=== PATIENT | male | born 1960 | race Hispanic/Latino ===

== ENCOUNTER 2018-11-11 14:44 | Emergency (ER) | payer BC, OTHER ==
[~2018-11-11] VITALS: Ht 182.9 cm; Wt 114.8 kg
[~2018-11-11 14:44] MED LIST: METFORMIN HCL500 MG PO; PRAVASTATIN SOD10 MG PO; [UNRECOGNIZED DRUG - CODE]; [UNRECOGNIZED DRUG - CODE] PO
--- OUTSIDE RECORDS SUMMARY | 2018-11-11 14:49 | XMS REPORT | CCD ---
Author Author Auto Generated Organization [facility] Address Unknown Phone Unavailable Care Team Providers Care Storeroom Supervisor Name Role Phone Jean Carlos Claros CP Allergies, Adverse Reactions, Alerts Substance Reaction Status codeine Active penicillins Active Problem List Condition Effective Dates Status [D]Nausea and vomiting Active Acid reflux Active Diverticulitis Active Epigastric pain Active HTN - Hypertension Active Type 2 diabetes mellitus Active Medications Medication Instructions Start Date End Date Status Flagyl 500 mg oral 500 mg, 1 tab, PO, Q8H, 30 tab, 02/16/2012 02/26/2012 Ordered tablet Substitution Allowed Cipro 500 mg oral 500 mg, 1 tab, PO, Q12H, 20 tab, 02/16/2012 02/26/2012 Ordered tablet Substitution Allowed, TAB Vicodin 5/500 oral 1-2 tab, PO, Q4-6H, PRN, 15 tab, 02/16/2012 02/21/2012 Ordered tablet Pain, Substitution Allowed, Soft Stop Colace 100 mg oral 100 mg, 1 cap, PO, BID, PRN, 20 02/16/2012 Ordered capsule cap, Constipation, Substitution Allowed, CAP ondansetron 4 mg, Route: IVP, Drug form: INJ, 02/16/2012 02/16/2012 Completed ONCE, Priority: STAT, Start date: 02/16/12 14:25:00, Stop date: 02/16/12 14:25:00 hydromorphone 1 mg, Route: IV, ONCE, Start date: 02/16/2012 02/16/2012 Completed 02/16/12 14:25:00, Stop date: 02/16/12 14:25:00 Saline Flush 0.9% 5 ml, Route: IVP, Drug Form: INJ, 02/16/2012 02/16/2012 Discontinued PRN, PRN Line Flush, Start date: 02/16/12 14:46:00, Duration: 24 hr, Stop date: 02/17/12 14:45:00 Sodium Chloride 0.9% 500 mL, Rate: 1,000 ml/hr, Infuse 02/16/2012 02/16/2012 Completed (Bolus) IV 500 mL over: 0.5 hr, Route: IV, kg, Total Volume: 500, Bolus dose, Priority: STAT, Start date: 02/16/12 14:46:00, Duration: 1 doses or times, Stop date: 02/16/12 15:15:00 ondansetron 4 mg, 2 mL, Route: IVP, Drug form: 02/16/2012 02/16/2012 Ordered INJ, ONCE, Priority: STAT, Start date: 02/16/12 14:46:00, Stop date: 02/16/12 14:46:00 hydromorphone 1 mg, 1 mL, Route: IVP, Drug form: 02/16/2012 02/16/2012 Ordered SOLN, ONCE, Priority: STAT, Start date: 02/16/12 14:46:00, Stop date: 02/16/12 14:46:00 Vital Signs Most recent to oldest [Reference Range]: 1 Height 182.88 cm (02/16/2012 14:02:00) Weight 118.182 kg (02/16/2012 14:02:00) Results URINALYSIS Most recent to oldest [Reference Range]: 1 UA Turbidity [Clear] Clear (02/16/2012 16:29:00) UA Color [Yellow] Yellow *NA* (02/16/2012 16:29:00) UA pH [5.0-8.0] 6.0 (02/16/2012 16:29:00) UA Spec Grav [<=1.030] 1.017 (02/16/2012 16:29:00) UA Glucose [Negative mg/dL] 150 mg/dL *ABN* (02/16/2012 16:29:00) UA Blood [Negative] Negative (02/16/2012 16:29:00) UA Ketones [Negative mg/dL] 80 mg/dL *ABN* (02/16/2012 16:29:00) UA Protein [Negative mg/dL] Negative mg/dL (02/16/2012 16:29:00) UA Urobilinogen [0.1-1.0 mg/dL] <=1.0 mg/dL *NA* (02/16/2012 16:29:00) UA Bili [Negative] Negative *NA* (02/16/2012 16:29:00) UA Leuk Est [Negative] Negative (02/16/2012 16:29:00) UA Nitrite [Negative] Negative (02/16/2012 16:29:00) UA WBC [0-5 /HPF] <1 /HPF (02/16/2012 16:29:00) UA RBC [0-2 /HPF] 1 /HPF (02/16/2012 16:29:00) UA Sq Epi None Seen *NA* (02/16/2012 16:29:00) UA Mucus [None Seen /LPF] Few /LPF *NA* (02/16/2012 16:29:00) CHEMISTRY Most recent to oldest [Reference Range]: 1 Sodium Lvl [135-145 mEq/L] 138 mEq/L (02/16/2012 14:15:00) Potassium Lvl [3.5-5.1 mEq/L] 3.7 mEq/L (02/16/2012 14:15:00) Chloride Lvl [95-109 mEq/L] 103 mEq/L (02/16/2012 14:15:00) CO2 [24-32 mEq/L] 22 mEq/L *LOW* (02/16/2012 14:15:00) AGAP [10.0-20.0 mEq/L] 16.7 mEq/L (02/16/2012 14:15:00) Creatinine Lvl [0.5-1.4 mg/dL] 1.0 mg/dL (02/16/2012 14:15:00) BUN [7-22 mg/dL] 15 mg/dL (02/16/2012 14:15:00) B/C Ratio [6-25] 15 (02/16/2012 14:15:00) Glucose Lvl [70-99 mg/dL] 176 mg/dL 1 *HI* (02/16/2012 14:15:00) Total Protein [6.4-8.4 g/dL] 8.4 g/dL (02/16/2012 14:15:00) Albumin Lvl [3.5-5.0 g/dL] 4.1 g/dL (02/16/2012 14:15:00) Globulin [2.0-4.0 g/dL] 4.3 g/dL *HI* (02/16/2012:15:00) A/G Ratio [0.7-1.6] 1.0 (02/16/2012 14:15:00) Calcium Lvl [8.5-10.5 mg/dL] 9.4 mg/dL (02/16/2012:15:00) ALT [0-65 U/L] 32 U/L (02/16/2012:15:00) AST [0-37 U/L] 26 U/L (02/16/2012 14:15:00) Alk Phos [39-136 U/L] 83 U/L (02/16/2012 14:15:00) Bili Total [0.2-1.3 mg/dL] 1.5 mg/dL *HI* (02/16/2012 14:15:00) Lipase Lvl [73-393 U/L] 389 U/L (02/16/2012 14:15:00) 1Interpretive Data: Adult reference range values reflect the clinical guidelines of the [employer]. HEMATOLOGY Most recent to oldest [Reference Range]: 1 WBC [3.7-10.4 K/CMM] 10.3 K/CMM (02/16/2012 14:15:00) RBC [4.70-6.10 M/CMM] 4.99 M/CMM (02/16/2012 14:15:00) Hgb [14.0-18.0 g/dL] 16.7 g/dL (02/16/2012:15:00) Hct [42.0-54.0 %] 47.8 % (02/16/2012 14:15:00) MCV [80.0-94.0 fL] 95.8 fL *HI* (02/16/2012 14:15:00) MCH [27.0-31.0 pg] 33.6 pg *HI* (02/16/2012 14:15:00) MCHC [32.0-36.0 g/dL] 35.0 g/dL (02/16/2012 14:15:00) RDW [11.5-14.5 %] 12.5 % (02/16/2012 14:15:00) Platelet [133-450 K/CMM] 260 K/CMM (02/16/2012 14:15:00) MPV [7.4-10.4 fL] 7.8 fL (02/16/2012 14:15:00) Segs [45.0-75.0 %] 63.4 % (02/16/2012 14:15:00) Lymphocytes [20.0-40.0 %] 29.2 % (02/16/2012 14:15:00) Monocytes [2.0-12.0 %] 6.6 % (02/16/2012 14:15:00) Eosinophils [0.0-4.0 %] 0.5 % (02/16/2012 14:15:00) Basophils [0.0-1.0 %] 0.3 % (02/16/2012 14:15:00) Segs-Bands # [1.5-8.1 K/CMM] 6.5 K/CMM (02/16/2012 14:15:00) Lymphocytes # [1.0-5.5 K/CMM] 3.0 K/CMM (02/16/2012 14:15:00) Monocytes # [0.0-0.8 K/CMM] 0.7 K/CMM (02/16/2012 14:15:00) Eosinophils # [0.0-0.5 K/CMM] 0.1 K/CMM (02/16/2012 14:15:00) Basophils # [0.0-0.2 K/CMM] 0.0 K/CMM (02/16/2012 14:15:00)
--- OUTSIDE RECORDS SUMMARY | 2018-11-11 14:49 | XMS REPORT | Summary of Care ---
Author Author [facility] Organization [facility] Address Unknown Phone Unavailable Encounter CARMELA Rushing(CHRIS) [id number] Date(s): 01/21/17 - 01/21/17 [facility] [id number] [place] [address]- Discharge Diagnosis: Acute pain of left shoulder due to trauma Discharge Disposition: Home or Self Care Attending Physician: Jakob Heller MD Vital Signs Most recent to 1 2 oldest [Reference Range]: Height 182.88 cm (01/21/17 9:56 AM) Temperature Oral 97.9 DegF 98.4 DegF [96.4-99.1 DegF] (01/21/17 11:40 AM) (01/21/17 9:56 AM) Blood Pressure 122/74 mmHg 142/79 mmHg [90-140/60-90 mmHg] (01/21/17 11:40 AM) *HI* (01/21/17 9:56 AM) Respiratory Rate 16 BRMIN 17 BRMIN [14-20 BRMIN] (01/21/17 11:40 AM) (01/21/17 9:56 AM) Peripheral Pulse 61 bpm 72 bpm Rate [60-100 bpm] (01/21/17 11:40 AM) (01/21/17 9:56 AM) Weight 109.091 kg (01/21/17 9:56 AM) Body Mass Index 32.62 m2 (01/21/17 9:56 AM) Problem List Condition Effective Dates Status Health Status Informant [D]Nausea and Active vomiting(Confirmed) Abdominal Resolved hernia(Confirmed) Acid Active reflux(Confirmed) Biliary dyskinesia1, 12/02/11 Active 2 Diabetes(Confirmed) Resolved Diverticulitis(Confi Resolved rmed) Diverticulitis(Confi Active rmed) Epigastric Active pain(Confirmed) HTN - Active Hypertension(Confirm ed) Type 2 diabetes Active mellitus(Confirmed) 1Data migrated from [employer] on 12/31/14. 2Data migrated from [employer] on 12/31/14. Allergies, Adverse Reactions, Alerts Substance Reaction Severity Status [email or web address] Active penicillins2 Active 1Data migrated from [employer] on 10/02/15. Originally documented as CODEINE. nausea, vomiting 2Data migrated from [employer] on 02/28/15. Originally documented as PENICILLIN. hives, rash,nausea Medications Flexeril 10 mg, Route: PO, ONCE, Dosing Weight 109.091, kg, Priority: STAT, Start date: 0 01/21/17 10:16:00 CDT, Stop date: 01/21/17 10:16:00 CDT Start Date: 01/21/17 Stop Date: 01/21/17 Status: Completed Flexeril 10 mg oral tablet 10 mg, PO, TID, PRN Muscle Spasm, X 10 day, # 30 tab, 0 Refill(s) Start Date: 01/21/17 Stop Date: 01/31/17 Status: Ordered Welches 5/325 oral tablet 1 tab, Route: PO, Drug Form: TAB, Dosing Weight 109.091, kg, ONCE, STAT, Start d ate: 01/21/17 10:15:00 CDT, Stop date: 01/21/17 10:15:00 CDT Start Date: 01/21/17 Stop Date: 01/21/17 Status: Completed tramadol 50 mg oral tablet 50 mg=1 tab, PO, BID, X 15 day, # 30 tab, 0 Refill(s) Start Date: 01/21/17 Stop Date: 02/05/17 Status: Ordered Results No data available for this section Immunizations No data available for this section Procedures Procedure Date Related Diagnosis Body Site Cholecystectomy Knee joint operation Social History Social History Type Response Smoking Status Never smoker; Exposure to Tobacco Smoke None; Cigarette Smoking Last 365 Days No; Reg Smoking Cessation Counseling No Assessment and Plan No data available for this section
--- OUTSIDE RECORDS SUMMARY | 2018-11-11 14:49 | XMS REPORT | Continuity of Care Document ---
Author Author Danilo trae [facility] Interface Address Unknown Phone Unavailable Problems Problem Status Onset Date Classification Date Reported Comments Source Discharge Diagnosis: Nausea and vomiting 04/10/2017 04/13/2017 [facility] Discharge Diagnosis: Acute epigastric pain 04/10/2017 04/13/2017 [facility] Discharge Diagnosis: GERD 04/10/2017 04/13/2017 [facility] N/V Active 04/10/2017 [facility] Discharge Diagnosis: Acute pain of left shoulder due to trauma 01/21/2017 01/24/2017 [facility] SHOULDER PAIN Active 01/21/2017 [facility] Discharge Diagnosis: Abdominal pain, epigastric 10/09/2016 10/13/2016 [facility] VOMITING Active 10/09/2016 [facility] Discharge Diagnosis: Diverticulitis 03/08/2016 03/11/2016 [facility] ABD PAIN Active 03/08/2016 [facility] Discharge Diagnosis: Lower abdominal pain, unspecified 03/06/2016 03/10/2016 [facility] Discharge Diagnosis: Nausea with vomiting, unspecified 03/06/2016 03/10/2016 [facility] INTRACTABLE ABD PAIN, R/O DIVERTICULITIS Active 03/06/2016 [facility] ABDOMINAL PAIN Active 03/17/2012 [facility] Biliary dyskinesia<sup>1, 2</sup> Active 12/02/2011 Problem 04/13/2017 [facility] migrated from [facility] on 12/31/14. [facility] [D]Nausea and vomiting Active Problem 04/13/2017 [facility] Abdominal hernia Resolved Problem 04/13/2017 [facility] Acid reflux Active Problem 04/13/2017 [facility] Diabetes Resolved Problem 04/13/2017 [facility] Diverticulitis Resolved Problem 04/13/2017 [facility] Epigastric pain Active Problem 04/13/2017 [facility] HTN - Hypertension Active Problem 04/13/2017 [facility] Type 2 diabetes mellitus Active Problem 04/13/2017 [facility] [D]Nausea and vomiting Active Problem 03/19/2012 [facility] Acid reflux Active Problem 03/19/2012 [facility] Diverticulitis Active Problem 03/19/2012 [facility] Epigastric pain Active Problem 03/19/2012 [facility] HTN - Hypertension Active Problem 03/19/2012 [facility] Type 2 diabetes mellitus Active Problem 03/19/2012 [facility] HTN - Hypertension Active Problem 12/28/2011 [facility] Medications Medication Details Route Status Patient Instructions Ordering Provider Order Date Source Promethazine Hydrochloride 12.5 MG Rectal Suppository [Phenergan] 12.5 mg=1 supp, MS, Q4H, PRN Nausea & Vomiting, # 12 supp, 0 Refill(s) Active 04/11/2017 [facility] Magic Mouth Wash (Maalox/Benadryl/Carafate) 1:1:1 5 ml, S&SPIT, QID, PRN Pain Score 6-10, # 180 ml, 0 Refill(s) Active 04/11/2017 [facility] Fentanyl 50 microgram, 1 mL, Route: IVP, Drug form: INJ, ONCE, Dosing Weight 109.091, kg, Priority: STAT, Start date: 04/10/17 21:22:00 CDT, Stop date: 04/10/17 21:22:00 CDTNotes: (Same as: Sublimaze) Preservative free. Inactive 04/11/2017 [facility] Zofran 4 mg, 2 mL, Route: IVP, Drug form: INJ, ONCE, Dosing Weight 109.091, kg, Priority: STAT, Start date: 04/10/17 21:22:00 CDT, Stop date: 04/10/17 21:22:00 CDTNotes: (Same as: Zofran) MEDICATION WASTE Product Size: 4 mg Product Wasted: ___ mg Inactive 04/11/2017 [facility] GI cocktail 30 mL, Route: PO, Drug Form: SUSP, Dosing Weight 109.091, kg, ONCE, STAT, Start date: 04/10/17 21:22:00 CDT, Stop date: 04/10/17 21:22:00 CDTNotes: G.I. Cocktail=antacid with simethicone 22.5 mL - lidocaine viscous 7.5 mL Inactive 04/11/2017 [facility] Saline Flush 0.9% 10 mL, Route: IVP, Drug Form: INJ, Dosing Weight 109.091, kg, PRN, PRN Line Flush, Start date: 04/10/17 15:29:00 CDT, Duration: 30 day, Stop date: 05/10/17 15:28:00 CDTNotes: (Same as: BD Posiflush) No Longer Active 04/10/2017 [facility] Cyclobenzaprine hydrochloride 10 MG Oral Tablet [Flexeril] 10 mg, PO, TID, PRN Muscle Spasm, X 10 day, # 30 tab, 0 Refill(s) Active 01/21/2017 [facility] tramadol hydrochloride 50 MG Oral Tablet 50 mg=1 tab, PO, BID, X 15 day, # 30 tab, 0 Refill(s) Active 01/21/2017 [facility] Flexeril 10 mg, Route: PO, ONCE, Dosing Weight 109.091, kg, Priority: STAT, Start date: 01/21/17 10:16:00 CDT, Stop date: 01/21/17 10:16:00 CDT Inactive 01/21/2017 [facility] Acetaminophen 325 MG / Hydrocodone Bitartrate 5 MG Oral Tablet [Wilmer 5/325] 1 tab, Route: PO, Drug Form: TAB, Dosing Weight 109.091, kg, ONCE, STAT, Start date: 01/21/17 10:15:00 CDT, Stop date: 01/21/17 10:15:00 CDT Inactive 01/21/2017 [facility] Ondansetron 4 MG Disintegrating Tablet [Zofran] 4 mg=1 tab, PO, TID, Dissolve tab under tongue, X 1 day, # 3 tab, 0 Refill(s) No Longer Active 10/10/2016 [facility] tramadol hydrochloride 50 MG Oral Tablet 50 mg=1 tab, PO, Q8H, PRN Pain, X 20 day, # 60 tab, 0 Refill(s) Active 10/10/2016 [facility] Ranitidine 300 MG Oral Tablet [Zantac] 300 mg=1 tab, PO, Daily, # 30 tab, 0 Refill(s) Active 10/10/2016 [facility] GI cocktail 30 mL, Route: PO, Dosing Weight 118.182, kg, ONCE, STAT, Start date: 10/09/16 22:01:00 LICENSED CLINICAL PSYCHOLOGIST, Stop date: 10/09/16 22:01:00 LICENSED CLINICAL PSYCHOLOGIST Inactive 10/10/2016 [facility] Morphine 4 mg, Route: IVP, ONCE, Dosing Weight 118.182, kg, Priority: STAT, Start date: 10/09/16 18:54:00 LICENSED CLINICAL PSYCHOLOGIST, Stop date: 10/09/16 18:54:00 LICENSED CLINICAL PSYCHOLOGIST Inactive 10/10/2016 [facility] Saline Flush 0.9% 10 mL, Route: IVP, Drug Form: INJ, Dosing Weight 118.182, kg, PRN, PRN Line Flush, Start date: 10/09/16 17:42:00 LICENSED CLINICAL PSYCHOLOGIST, Duration: 30 day, Stop date: 11/08/16 18:41:00 CDTNotes: (Same as: BD Posiflush) No Longer Active 10/09/2016 [facility] Sodium Chloride 0.154 MEQ/ML Injectable Solution 1,000 mL, 2,000 ml/hr, Infuse Over: 30 minutes, Route: IV, 1,000, Drug form: INJ, ONCE, Priority: STAT, Dosing Weight 118.182 kg, Start date: 10/09/16 17:42:00 LICENSED CLINICAL PSYCHOLOGIST, Duration: 1 doses or times, Stop date: 10/09/16 17:42:00 LICENSED CLINICAL PSYCHOLOGIST Inactive 10/09/2016 [facility] Ondansetron 4 mg, Route: IVP, ONCE, Dosing Weight 118.182, kg, Priority: STAT, Start date: 10/09/16 17:42:00 LICENSED CLINICAL PSYCHOLOGIST, Stop date: 10/09/16 17:42:00 LICENSED CLINICAL PSYCHOLOGIST Inactive 10/09/2016 [facility] Ondansetron 0.8 MG/ML Oral Solution [Zofran] 4 mg=5 mL, PO, TID, PRN Nausea, X 3 day, # 45 mL, 0 Refill(s) Active 03/08/2016 [facility] Hydromorphone 0.5 mg, Route: IVP, ONCE, Dosing Weight 118.182, kg, Priority: STAT, Start date: 03/08/16 12:15:00 CDT, Stop date: 03/08/16 12:15:00 CDT Inactive 03/08/2016 [facility] Metoclopramide 10 mg, Route: IVP, Drug form: INJ, ONCE, Dosing Weight 118.182, kg, Priority: STAT, Start date: 03/08/16 12:15:00 CDT, Stop date: 03/08/16 12:15:00 CDT Inactive 03/08/2016 [facility] Sodium Chloride 0.154 MEQ/ML Injectable Solution 1,000 mL, 2,000 ml/hr, Infuse Over: 30 minutes, Route: IV, ONCE, Priority: STAT, Dosing Weight 118.182 kg, Start date: 03/08/16 11:59:00 CDT, Duration: 1 doses or times, Stop date: 03/08/16 11:59:00 CDT Inactive 03/08/2016 [facility] Ondansetron 4 mg, Route: IVP, Drug form: INJ, ONCE, Dosing Weight 118.182, kg, Priority: STAT, Start date: 03/08/16 11:59:00 CDT, Stop date: 03/08/16 11:59:00 CDT Inactive 03/08/2016 [facility] Morphine 4 mg, Route: IVP, ONCE, Dosing Weight 118.182, kg, Priority: STAT, Start date: 03/08/16 11:59:00 CDT, Stop date: 03/08/16 11:59:00 CDT Inactive 03/08/2016 [facility] Metronidazole 500 MG Oral Tablet [Flagyl] 500 mg=1 tab, PO, Q8H, X 7 day, # 21 tab, 0 Refill(s) Active 03/07/2016 [facility] Ciprofloxacin 500 MG Oral Tablet [Cipro] 500 mg=1 tab, PO, Q12H, X 7 day, # 14 tab, 0 Refill(s) Active 03/07/2016 [facility] Flagyl 500 mg, 100 mL, Route: IVPB, Drug form: INJ, [id number], Dosing Weight 118.182, kg, Start date: 03/07/16 11:00:00 CDT, Duration: 30 day, Stop date: 04/06/16 3:00:00 CDTNotes: (Same as: Flagyl) Avoid alcohol. Inactive 03/07/2016 [facility] Ciprofloxacin 400 mg, 200 mL, Route: IVPB, Drug form: INJ, [id number], Dosing Weight 118.182, kg, Start date: 03/07/16 11:00:00 CDT, Duration: 30 day, Stop date: 04/05/16 23:00:00 CDTNotes: Do not refrigerate Inactive 03/07/2016 [facility] Sodium Chloride 0.154 MEQ/ML Injectable Solution 1,000 mL, Rate: 125 ml/hr, Infuse over: 8 hr, Route: IV, Dosing Weight 118.182 kg, Total Volume: 1,000, Start date: 03/06/16 22:37:00 CDT, Duration: 30 day, Stop date: 04/05/16 22:36:00 CDT No Longer Active 03/07/2016 [facility] Glucose 50 MG/ML / Sodium Chloride 0.0769 MEQ/ML Injectable Solution 1,000 mL, Rate: 125 ml/hr, Infuse over: 8 hr, Route: IV, Dosing Weight 118.182 kg, Total Volume: 1,000, Start date: 03/06/16 20:24:00 CDT, Duration: 30 day, Stop date: 04/05/16 20:23:00 CDT Inactive 03/07/2016 [facility] Saline Flush 0.9% 10 ml, Route: IVP, Drug Form: INJ, Dosing Weight 118.182, kg, PRN, PRN Line Flush, Start date: 03/06/16 20:24:00 CDT, Duration: 30 day, Stop date: 04/05/16 20:23:00 CDTNotes: (Same as: BD Posiflush) No Longer Active 03/07/2016 [facility] Acetaminophen 650 mg, 2 tab, Route: PO, Drug form: TAB, Q4H, Dosing Weight 118.182, kg, PRN Pain 1-3/Temp > 100.4 F, Start date: 03/06/16 20:24:00 CDT, Duration: 30 day, Stop date: 04/05/16 20:23:00 CDTNotes: Do not exceed 4 gm/day. (Same as: Tylenol) No Longer Active 03/07/2016 [facility] Morphine 2 mg, 1 mL, Route: IVP, Drug form: INJ, Q4H, Dosing Weight 118.182, kg, PRN Pain Score 7-10, Start date: 03/06/16 20:24:00 CDT, Duration: 30 day, Stop date: 04/05/16 20:23:00 CDTNotes: (Same as:MORPhine Sulfate) No Longer Active 03/07/2016 [facility] Phenergan 12.5 mg, Route: IVPB, ONCE, Dosing Weight 118.182, kg, Priority: STAT, Start date: 03/06/16 19:49:00 CDT, Stop date: 03/06/16 19:49:00 CDT Inactive 03/07/2016 [facility] 24 HR Metformin hydrochloride 500 MG Extended Release Tablet 500 mg=1 tab, PO, BID, 0 Refill(s) Active 03/07/2016 [facility] Flagyl 500 mg, 100 mL, Route: IVPB, Drug form: INJ, ONCE, Dosing Weight 118.182, kg, Priority: STAT, Start date: 03/06/16 19:26:00 CDT, Stop date: 03/06/16 19:26:00 CDTNotes: (Same as: Flagyl) Avoid alcohol. Inactive 03/07/2016 [facility] Cipro 400 mg, 200 mL, Route: IVPB, Drug form: INJ, ONCE, Dosing Weight 118.182, kg, Priority: STAT, Start date: 03/06/16 19:26:00 CDT, Stop date: 03/06/16 19:26:00 CDTNotes: Do not refrigerate Inactive 03/07/2016 [facility] Ondansetron 4 MG Disintegrating Tablet [Zofran] 4 mg=1 tab, PO, BID, PRN Nausea and Vomiting, Dissolve tab under tongue, X 4 day, # 8 tab, 0 Refill(s) Active 03/07/2016 [facility] Metronidazole 500 MG Oral Tablet [Flagyl] 500 mg=1 tab, PO, BID, X 7 day, # 14 tab, 0 Refill(s) Active 03/07/2016 [facility] Ciprofloxacin 500 MG Oral Tablet [Cipro] 500 mg=1 tab, PO, Q12H, X 7 day, # 14 tab, 0 Refill(s) Active 03/07/2016 [facility] Zofran 4 mg, 2 mL, Route: IVP, Drug form: INJ, ONCE, Dosing Weight 118.182, kg, Priority: STAT, Start date: 03/06/16 19:13:00 CDT, Stop date: 03/06/16 19:13:00 CDTNotes: (Same as: Zofran) MEDICATION WASTE Product Size: 4 mg Product Wasted: _0__ mg Inactive 03/07/2016 [facility] Dilaudid 1 mg, 1 mL, Route: IV, Drug form: INJ, ONCE, Dosing Weight 118.182, kg, Start date: 03/06/16 19:13:00 CDT, Stop date: 03/06/16 19:13:00 CDT Inactive 03/07/2016 [facility] Sodium Chloride 0.154 MEQ/ML Injectable Solution 1,000 mL, 1,000 ml/hr, Infuse Over: 1 hr, Route: IV, 1,000, Drug form: INJ, ONCE, Priority: STAT, Dosing Weight 118.182 kg, Start date: 03/06/16 16:13:00 CDT, Duration: 1 doses or times, Stop date: 03/06/16 16:13:00 CDT Inactive 03/06/2016 [facility] Dilaudid 1 mg, 1 mL, Route: IV, Drug form: INJ, ONCE, Dosing Weight 118.182, kg, Start date: 03/06/16 16:13:00 CDT, Stop date: 03/06/16 16:13:00 CDT Inactive 03/06/2016 [facility] Protonix 40 mg, Route: IVP, Drug form: INJ, ONCE, Dosing Weight 118.182, kg, Priority: STAT, Start date: 03/06/16 16:13:00 CDT, Stop date: 03/06/16 16:13:00 CDTNotes: For IV push reconstitute with 10 ml 0.9% sod ium chloride and push over 2 minutes. (Same as: Protonix) Inactive 03/06/2016 [facility] Sodium Chloride 0.154 MEQ/ML Injectable Solution 1,000 mL, 1,000 ml/hr, Infuse Over: 1 hr, Route: IV, ONCE, Priority: STAT, Dosing Weight 118.182 kg, Start date: 03/06/16 15:53:00 CDT, Duration: 1 doses or times, Stop date: 03/06/16 15:53:00 CDT Inactive 03/06/2016 [facility] Ondansetron 4 mg, 2 mL, Route: IVP, Drug form: INJ, ONCE, Dosing Weight 118.182, kg, Priority: STAT, Start date: 03/06/16 15:53:00 CDT, Stop date: 03/06/16 15:53:00 CDTNotes: (Same as: Ashely) MEDICATION WASTE Product Size: 4 mg Product Wasted: ___ mg Inactive 03/06/2016 [facility] Morphine 4 mg, 2 mL, Route: IV, Drug form: INJ, ONCE, Dosing Weight 118.182, kg, Start date: 03/06/16 15:52:00 CDT, Stop date: 03/06/16 15:52:00 CDTNotes: (Same as:MORPhine Sulfate) Inactive 03/06/2016 [facility] Saline Flush 0.9% 10 mL, Route: IVP, Drug Form: INJ, Dosing Weight 118.182, kg, PRN, PRN Line Flush, Start date: 03/06/16 15:52:00 CDT, Duration: 30 day, Stop date: 04/05/16 15:51:00 CDTNotes: (Same as: BD Posiflush) No Longer Active 03/06/2016 [facility] Zofran 4 mg oral tablet 4 mg, 1 tab, PO, BID, 10 tab, Substitution Allowed PO Active Ronald 03/18/2012 [facility] Sodium Chloride 0.9% (Bolus) IV 1,000 mL 1,000 mL, Rate: 1,000 ml/hr, Infuse over: 1 hr, Route: IV, Dosing Weight 113 kg, Total Volume: 1,000, Bolus Dose, Priority: STAT, Start date: 03/17/12 20:35:00, Duration: 1 doses or times, Stop date: 03/17/12 21:34:00 IV No Longer Active Ronald 03/18/2012 [facility] Sodium Chloride 0.9% (Bolus) IV 1000 mL 1,000 mL, Rate: 1,000 ml/hr, Infuse over: 1 hr, Route: IV, kg, Total Volume: 1,000, Bolus Dose, Priority: STAT, Start date: 03/17/12 17:57:00, Duration: 1 doses or times, Stop date: 03/17/12 18:56:00 IV No Longer Active Isa 03/17/2012 [facility] Zofran 4 mg, Route: IVP, Drug form: INJ, ONCE, Dosing Weight 113.636, kg, Priority: STAT, Start date: 03/17/12 17:56:00, Stop date: 03/17/12 17:56:00 IVP No Longer Active Ronald 03/17/2012 [facility] Dilaudid 1 mg, Route: IV, ONCE, Dosing Weight 113.636, kg, Start date: 03/17/12 17:56:00, Stop date: 03/17/12 17:56:00 IV No Longer Active Ronald 03/17/2012 [facility] Saline Flush 0.9% 5 ml, Route: IVP, Drug Form: INJ, kg, PRN, PRN Line Flush, Start date: 03/17/12 17:24:00, Duration: 24 hr, Stop date: 03/18/12 17:23:00 IVP No Longer Active Harsh 03/17/2012 [facility] Flagyl 500 mg oral tablet 500 mg, 1 tab, PO, Q8H, 30 tab, Substitution Allowed PO Active Nhan 02/16/2012 [facility] Cipro 500 mg oral tablet 500 mg, 1 tab, PO, Q12H, 20 tab, Substitution Allowed, TAB PO Active Nhan 02/16/2012 [facility] Vicodin 5/500 oral tablet 1-2 tab, PO, Q4-6H, PRN, 15 tab, Pain, Substitution Allowed, Soft Stop PO Active Nhan 02/16/2012 [facility] Colace 100 mg oral capsule 100 mg, 1 cap, PO, BID, PRN, 20 cap, Constipation, Substitution Allowed, CAP PO Active Nhan 02/16/2012 [facility] Saline Flush 0.9% 5 ml, Route: IVP, Drug Form: INJ, PRN, PRN Line Flush, Start date: 02/16/12 14:46:00, Duration: 24 hr, Stop date: 02/17/12 14:45:00 IVP No Longer Active Nhan 02/16/2012 [facility] Sodium Chloride 0.9% (Bolus) IV 500 mL 500 mL, Rate: 1,000 ml/hr, Infuse over: 0.5 hr, Route: IV, kg, Total Volume: 500, Bolus dose, Priority: STAT, Start date: 02/16/12 14:46:00, Duration: 1 doses or times, Stop date: 02/16/12 15:15:00 IV No Longer Active Nhan 02/16/2012 [facility] ondansetron 4 mg, 2 mL, Route: IVP, Drug form: INJ, ONCE, Priority: STAT, Start date: 02/16/12 14:46:00, Stop date: 02/16/12 14:46:00 IVP Active Nhan 02/16/2012 [facility] hydromorphone 1 mg, 1 mL, Route: IVP, Drug form: SOLN, ONCE, Priority: STAT, Start date: 02/16/12 14:46:00, Stop date: 02/16/12 14:46:00 IVP Active Nhan 02/16/2012 [facility] ondansetron 4 mg, Route: IVP, Drug form: INJ, ONCE, Priority: STAT, Start date: 02/16/12 14:25:00, Stop date: 02/16/12 14:25:00 IVP No Longer Active Nhan 02/16/2012 [facility] hydromorphone 1 mg, Route: IV, ONCE, Start date: 02/16/12 14:25:00, Stop date: 02/16/12 14:25:00 IV No Longer Active Nhan 02/16/2012 [facility] Protonix 40 mg, 1 tab, Route: PO, Drug form: ECTAB, BID- Before Meals, Start date: 12/26/11 16:30:00, Duration: 30 day, Stop date: 01/25/12 7:30:00 PO No Longer Active Mougouris 12/26/2011 [facility] Protonix 40 mg oral enteric coated tablet 40 mg, 1 tab, PO, BID, 60 tab, Substitution Allowed, ECTAB PO Active Mougouris 12/26/2011 [facility] Protonix 40 mg oral enteric coated tablet 40 mg, 1 tab, PO, BID, 60 tab, Substitution Allowed PO Active Mougouris 12/26/2011 [facility] Saline Flush 0.9% 5 ml, Route: IVP, Drug Form: INJ, PRN, PRN Line Flush, Start date: 12/25/11 18:57:00, Duration: 30 day, Stop date: 01/24/12 18:56:00 IVP No Longer Active Mougouris 12/25/2011 [facility] Dextrose 5% with 0.45% NaCl IV 1,000 mL 1,000 mL, Rate: 125 ml/hr, Infuse over: 8 hr, Route: IV, Dosing Weight 118.182 kg, Total Volume: 1,000, Start date: 12/25/11 18:57:00, Duration: 30 day, Stop date: 01/24/12 18:56:00 IV No Longer Active Mougclementeis 12/25/2011 [facility] ondansetron 4 mg, 2 mL, Route: IVP, Drug form: INJ, Q6H, PRN Nausea & Vomiting, Start date: 12/25/11 18:57:00, Duration: 30 day, Stop date: 01/24/12 18:56:00 IVP No Longer Active Humbertoheidy 12/25/2011 [facility] morphine Sulfate 4 mg, 2 mL, Route: IVP, Drug form: INJ, Q4H, PRN Pain Score 7-10, Start date: 12/25/11 18:57:00, Duration: 30 day, Stop date: 01/24/12 18:56:00 IVP No Longer Active Lonnyellaheidy 12/25/2011 [facility] Ativan 1 mg, 0.5 mL, Route: IVP, Drug form: INJ, ONCE, PRN See Nurse's Notes, Start date: 12/25/11 18:13:00, Prior to the MRI IVP No Longer Active Jovanniscotty 12/25/2011 [facility] Dilaudid 1 mg, 1 mL, Route: IV, Drug form: SOLN, ONCE, PRN See Nurse's Notes, Start date: 12/25/11 18:13:00, Stop date: 01/24/12 18:12:00, Prior to MRI IV No [facility]er [facility] Benadryl 50 mg, 1 mL, Route: IVP, Drug form: INJ, ONCE, PRN See Nurse's Notes, Start date: 12/25/11 18:12:00, prior to MRI IVP No Longer Active Jovanniscotty 12/25/2011 [facility] acetaminophen-hydrocodone 325 mg-5 mg oral tablet 1 tab, PO, Q4H, PRN, as needed for pain, Substitution Allowed, Maintenance PO Active 12/25/2011 [facility] Prilosec OTC 20 mg oral enteric coated tablet 20 mg, 1 tab, PO, Daily, Substitution Allowed PO No Longer Active 12/25/2011 [facility] ondansetron 4 mg, Route: IVP, Drug form: INJ, ONCE, Priority: STAT, Start date: 12/25/11 16:12:00, Stop date: 12/25/11 16:12:00 IVP No Longer Active Malheur 12/25/2011 [facility] morphine Sulfate 4 mg, Route: IVP, ONCE, Priority: STAT, Start date: 12/25/11 16:11:00, Stop date: 12/25/11 16:11:00 IVP No Longer Active [place] 12/25/2011 [facility] GI cocktail 30 ml, Route: PO, Drug Form: SUSP, ONCE, Formulation #1: (Maalox 30ml - Viscous Lidocaine 10ml - Elixir 10ml), STAT, Start date: 12/25/11 14:13:00, Stop date: 12/25/11 14:13:00 PO No Longer Active [place] 12/25/2011 [facility] Saline Flush 0.9% 5 ml, Route: IVP, Drug Form: INJ, PRN, PRN Line Flush, Start date: 12/25/11 14:13:00, Duration: 24 hr, Stop date: 12/26/11 14:12:00 IVP No Longer Active Mougouris 12/25/2011 [facility] Allergies, Adverse Reactions, Alerts Substance Category Reaction Severity Reaction type Status Date Reported Comments Source codeine<sup>1</sup> Assertion Drug allergy Active 12/02/2011 Data migrated from [employer] on 10/02/15. Originally documented as CODEINE. nausea, vomiting [facility] penicillins<sup>2</sup> Assertion Drug allergy Active 12/02/2011 Data migrated from [employer] on 02/28/15. Originally documented as PENICILLIN. hives, rash,nausea [facility] codeine drug allergy Allergy Active [facility] penicillins drug allergy Allergy Active [facility] Immunizations Immunization Date Given Site Status Last Updated Comments Source Results Order Name Results Value Reference Range Date Interpretation Comments Source URINE AND STOOL UA Sq Epi None Seen (04/10/17 9:54 PM) Few 04/11/2017 [facility] URINE AND STOOL UA Hyal Cast 4 /LPF 0 - 2 04/11/2017 [facility] URINE AND STOOL UA Mucus Many /LPF None Seen /LPF 04/11/2017 [facility] URINE AND STOOL UA WBC 2 /HPF 0 - 5 04/11/2017 [facility] URINE AND STOOL UA Bacteria Occasional /HPF None Seen /HPF 04/11/2017 [facility] URINE AND STOOL UA RBC 1 /HPF 0 - 2 04/11/2017 [facility] URINE AND STOOL UA Turbidity Clear (04/10/17 9:54 PM) Clear 04/11/2017 [facility] URINE AND STOOL UA pH 7.0 5.0 - 8.0 04/11/2017 [facility] URINE AND STOOL UA Spec Grav 1.015 <=1.030 04/11/2017 [facility] URINE AND STOOL UA Color Yellow *NA* (04/10/17 9:54 PM) Yellow 04/11/2017 [facility] URINE AND STOOL UA Leuk Est Negative (04/10/17 9:54 PM) Negative 04/11/2017 [facility] URINE AND STOOL UA Urobilinogen 1.0 EU/dL 0.1 - 1.0 04/11/2017 [facility] URINE AND STOOL UA Nitrite Negative (04/10/17 9:54 PM) Negative 04/11/2017 [facility] URINE AND STOOL UA Bili Small *ABN* (04/10/17 9:54 PM) Negative 04/11/2017 [facility] URINE AND STOOL UA Ketones 40 mg/dL Negative mg/dL 04/11/2017 [facility] URINE AND STOOL UA Blood Negative (04/10/17 9:54 PM) Negative 04/11/2017 [facility] URINE AND STOOL UA Glucose 250 *ABN* (04/10/17 9:54 PM) Negative 04/11/2017 [facility] URINE AND STOOL UA Protein 30 mg/dL Negative mg/dL 04/11/2017 [facility] CARDIAC ENZYMES Troponin-I null 0.00 - 0.40 04/11/2017 [facility] CHEM PANEL Lipase Lvl 261 unit/L 73 - 393 04/11/2017 [facility] CHEM PANEL eGFR 83 mL/min/1.73m2 04/11/2017 Result Comment: The eGFR is calculated using the CKD-EPI formula. In most young, healthy individuals the eGFR will be >90 mL/min/1.73m2. The eGFR declines with age. An eGFR of 60-89 may be normal in some populations, particularly the elderly, for whom the CKD-EPI formula has not been extensively validated. Use of the eGFR is not recommended in the following populations: Individuals with unstable creatinine concentrations, including patients and those with serious co-morbid conditions. Patients with extremes in muscle mass or diet. The data above are obtained from the National Kid[employer] Education Program (NKDEP) which additionally recommends that when the eGFR is used in patients with extremes of body mass index for purposes of drug dosing, the eGFR should be multiplied by the estimated BMI. [facility] CHEM PANEL Total Protein 8.5 g/dL 6.4 - 8.4 04/11/2017 [facility] CHEM PANEL Albumin Lvl 3.9 g/dL 3.5 - 5.0 04/11/2017 [facility] CHEM PANEL ALT 28 unit/L 0 - 65 04/11/2017 [facility] CHEM PANEL AST 21 unit/L 0 - 37 04/11/2017 [facility] CHEM PANEL Alk Phos 105 unit/L 39 - 136 04/11/2017 [facility] CHEM PANEL Glucose Lvl 191 mg/dL 70 - 99 04/11/2017 [facility] CHEM PANEL Chloride Lvl 100 meq/L 95 - 109 04/11/2017 [facility] CHEM PANEL CO2 30 meq/L 24 - 32 04/11/2017 [facility] CHEM PANEL Calcium Lvl 9.6 mg/dL 8.5 - 10.5 04/11/2017 [facility] CHEM PANEL Bili Total 1.0 mg/dL 0.2 - 1.3 04/11/2017 [facility] CHEM PANEL Creatinine Lvl 1.00 mg/dL 0.50 - 1.40 04/11/2017 [facility] CHEM PANEL Sodium Lvl 137 meq/L 135 - 145 04/11/2017 [facility] CHEM PANEL BUN 14 mg/dL 7 - 22 04/11/2017 [facility] PANEL Potassium Lvl 3.9 meq/L 3.5 - 5.1 04/11/2017 [facility] PANEL B/C Ratio 14 6 - 25 04/11/2017 [facility] PANEL AGAP 10.9 meq/L 10.0 - 20.0 04/11/2017 [facility] PANEL Globulin 4.6 g/dL 2.7 - 4.2 04/11/2017 [facility] CHEM PANEL A/G Ratio 0.8 0.7 - 1.6 04/11/2017 [facility] HEMATOLOGY Segs-Bands # 11.0 K/CMM 1.5 - 8.1 04/11/2017 [facility] HEMATOLOGY Lymphocytes # 1.1 K/CMM 1.0 - 5.5 04/11/2017 [facility] HEMATOLOGY Monocytes # 0.4 K/CMM 0.0 - 0.8 04/11/2017 [facility] HEMATOLOGY Basophils 0.1 % 0.0 - 1.0 04/11/2017 [facility] HEMATOLOGY Segs 87.7 % 45.0 - 75.0 04/11/2017 [facility] Lymphocytes 9.1 % 20.0 - 40.0 04/11/2017 [facility] Monocytes 3.1 % 2.0 - 12.0 04/11/2017 [facility] WBC 12.5 K/CMM 3.7 - 10.4 04/11/2017 [facility] MCH 32.5 pg 27.0 - 31.0 04/11/2017 [facility] MCHC 34.8 g/dL 32.0 - 36.0 04/11/2017 [facility] MPV 6.7 fL 7.4 - 10.4 04/11/2017 [facility] RDW 12.8 % 11.5 - 14.5 04/11/2017 [facility] Platelet 305 K/CMM 133 - 450 04/11/2017 [facility] RBC 4.60 M/CMM 4.70 - 6.10 04/11/2017 [facility] Hgb 15.0 g/dL 14.0 - 18.0 04/11/2017 [facility] Hct 43.0 % 42.0 - 54.0 04/11/2017 [facility] MCV 93.4 fL 80.0 - 94.0 04/11/2017 [facility] ED Abdomen/Pelvis IV contrast only CT ED Abdomen/Pelvis IV contrast only CT ED Abdomen/Pelvis IV contrast only CT 57 years /o Male Clinical Indication: - severe episgastric pain, diffuse moderate. PT c/o epigastric pain, nausea, and vomiting onset x2 days ago; hx of dm.; Comparison: 10/09/2016 TECHNIQUE: Helical imaging was performed diaphragm through the symphysis with multiplanar reformations obtained. IV CONTRAST: 100cc Omnipaque 300 GI CONTRAST: None Radiation Dose: TIM=[id number] mGy-cm FINDINGS: LOWER CHEST: The lung bases are clear. SOLID ORGANS: The liver, spleen, pancreas, adrenal glands and kidneys are normal. The gallbladder is surgically absent. BOWEL: The bowel is within normal limits. Suspect minimal diverticulosis in the proximal sigmoid colon. The appendix is visualized and is within normal limits. PERITONEUM: No free intraperitoneal fluid or air. RETROPERITONEUM: No adenopathy. The aorta is normal. PELVIS: No pelvic mass. The urinary bladder is normal. The prostate gland is mildly prominent and heterogeneous in density measuring approximately 5.2 cm in diameter. MUSCULOSKELETAL: The skeleton is remarkable for degenerative spondylosis at the L5-S1 level which is not significantly changed from previous exam. IMPRESSION: 1. Previous cholecystectomy. 2. Mildly prominent prostate gland. SL: [id number] 04/10/2017 - - Read by: Bora Trinidad MD Dictated Date/time: 04/10/17 21:57 Electronically Signed by: Bora Trinidad MD 04/10/17 22:01 FINAL REPORT [facility] Shoulder series DX Shoulder series DX Shoulder series DX CLINICAL HISTORY: - pain s/p fall FINDINGS/IMPRESSION: 3 views of the left shoulder are submitted for review. No evidence for fracture or subluxation. The visualized bones demonstrate normal radiodensity. No significant degenerative change is noted. No abnormal soft tissue calcifications or other significant soft tissue abnormality is noted. Visualized portion of the lungs are clear. SL: [id number] 01/21/2017 - - Read by: Elieso Snyder MD Dictated Date/time: 01/21/17 10:54 Electronically Signed by: Eliseo Snyder MD 01/21/17 10:55 FINAL REPORT [facility] URINE AND STOOL UA Urobilinogen <=1.0 mg/dL 0.1 - 1.0 10/10/2016 [facility] URINE AND STOOL UA WBC 1 /HPF 0 - 5 10/10/2016 [facility] URINE AND STOOL UA Sq Epi Occasional /LPF Few /LPF 10/10/2016 [facility] URINE AND STOOL UA Leuk Est Negative (10/09/16 7:42 PM) Negative 10/10/2016 [facility] URINE AND STOOL UA Ketones 80 mg/dL Negative mg/dL 10/10/2016 [facility] URINE AND STOOL UA Glucose 50 mg/dL Negative mg/dL 10/10/2016 [facility] URINE AND STOOL UA Nitrite Negative (10/09/16 7:42 PM) Negative 10/10/2016 [facility] URINE AND STOOL UA Blood Negative (10/09/16 7:42 PM) Negative 10/10/2016 [facility] URINE AND STOOL UA Bili Negative *NA* (10/09/16 7:42 PM) Negative 10/10/2016 [facility] URINE AND STOOL UA Color Yellow *NA* (10/09/16 7:42 PM) Yellow 10/10/2016 [facility] URINE AND STOOL UA Protein Negative mg/dL Negative mg/dL 10/10/2016 [facility] URINE AND STOOL UA pH 5.0 5.0 - 8.0 10/10/2016 [facility] URINE AND STOOL UA Spec Grav 1.027 <=1.030 10/10/2016 [facility] URINE AND STOOL UA Turbidity Slight *ABN* (10/09/16 7:42 PM) Clear 10/10/2016 [facility] URINE AND STOOL UA RBC 3 /HPF 0 - 2 10/10/2016 [facility] URINE AND STOOL UA Mucus Many /LPF None Seen /LPF 10/10/2016 [facility] URINE AND STOOL UA Bacteria Occasional /HPF None Seen /HPF 10/10/2016 [facility] CARDIAC ENZYMES Total CK 248 unit/L 12 - 191 10/09/2016 [facility] CARDIAC ENZYMES CK MB 2.5 ng/mL 0.5 - 3.6 10/09/2016 [facility] CARDIAC ENZYMES Troponin-I null 0.00 - 0.40 10/09/2016 [facility] CARDIAC ENZYMES CK MB Index 1.0 0.0 - 2.5 10/09/2016 [facility] CHEM PANEL Lipase Lvl 331 unit/L 73 - 393 10/09/2016 [facility] CHEM PANEL eGFR 88 mL/min/1.73m2 10/09/2016 Result Comment: The eGFR is calculated using the CKD-EPI formula. In most young, healthy individuals the eGFR will be >90 mL/min/1.73m2. The eGFR declines with age. An eGFR of 60-89 may be normal in some populations, particularly the elderly, for whom the CKD-EPI formula has not been extensively validated. Use of the eGFR is not recommended in the following populations: Individuals with unstable creatinine concentrations, including patients and those with serious co-morbid conditions. Patients with extremes in muscle mass or diet. The data above are obtained from the National Kidney Disease Education Program (NKDEP) which additionally recommends that when the eGFR is used in patients with extremes of body mass index for purposes of drug dosing, the eGFR should be multiplied by the estimated BMI. [facility] CHEM PANEL A/G Ratio 1.0 0.7 - 1.6 10/09/2016 [facility] CHEM PANEL AGAP 15.8 meq/L 10.0 - 20.0 10/09/2016 [facility] CHEM PANEL B/C Ratio 22 6 - 25 10/09/2016 [facility] CHEM PANEL Globulin 4.1 g/dL 2.7 - 4.2 10/09/2016 [facility] CHEM PANEL Alk Phos 99 unit/L 39 - 136 10/09/2016 [facility] CHEM PANEL Bili Total 1.5 mg/dL 0.2 - 1.3 10/09/2016 [facility] CHEM PANEL AST 34 unit/L 0 - 37 10/09/2016 [facility] CHEM PANEL ALT 30 unit/L 0 - 65 10/09/2016 [facility] CHEM PANEL BUN 21 mg/dL 7 - 22 10/09/2016 [facility] CHEM PANEL Creatinine Lvl 0.96 mg/dL 0.50 - 1.40 10/09/2016 [facility] CHEM PANEL Glucose Lvl 121 mg/dL 70 - 99 10/09/2016 [facility] CHEM PANEL Total Protein 8.4 g/dL 6.4 - 8.4 10/09/2016 [facility] CHEM PANEL Albumin Lvl 4.3 g/dL 3.5 - 5.0 10/09/2016 [facility] CHEM PANEL Calcium Lvl 9.4 mg/dL 8.5 - 10.5 10/09/2016 [facility] CHEM PANEL CO2 25 meq/L 24 - 32 10/09/2016 [facility] CHEM PANEL Chloride Lvl 98 meq/L 95 - 109 10/09/2016 [facility] CHEM PANEL Potassium Lvl 3.8 meq/L 3.5 - 5.1 10/09/2016 [facility] CHEM PANEL Sodium Lvl 135 meq/L 135 - 145 10/09/2016 [facility] HEMATOLOGY MCH 32.7 pg 27.0 - 31.0 10/09/2016 [facility] MCV 94.2 fL 80.0 - 94.0 10/09/2016 [facility] HEMATOLOGY Hct 44.0 % 42.0 - 54.0 10/09/2016 [facility] HEMATOLOGY MPV 7.3 fL 7.4 - 10.4 10/09/2016 [facility] HEMATOLOGY Platelet 321 K/CMM 133 - 450 10/09/2016 [facility] HEMATOLOGY Hgb 15.3 g/dL 14.0 - 18.0 10/09/2016 [facility] HEMATOLOGY RBC 4.67 M/CMM 4.70 - 6.10 10/09/2016 [facility] HEMATOLOGY RDW 12.9 % 11.5 - 14.5 10/09/2016 [facility] MCHC 34.7 g/dL 32.0 - 36.0 10/09/2016 [facility] HEMATOLOGY WBC 8.5 K/CMM 3.7 - 10.4 10/09/2016 [facility] Eosinophils # 0.1 K/CMM 0.0 - 0.5 10/09/2016 [facility] HEMATOLOGY Basophils 0.3 % 0.0 - 1.0 10/09/2016 [facility] Eosinophils 0.7 % 0.0 - 4.0 10/09/2016 [facility] Monocytes 6.7 % 2.0 - 12.0 10/09/2016 [facility] Lymphocytes 34.8 % 20.0 - 40.0 10/09/2016 [facility] Segs 57.5 % 45.0 - 75.0 10/09/2016 [facility] Monocytes # 0.6 K/CMM 0.0 - 0.8 10/09/2016 [facility] Lymphocytes # 3.0 K/CMM 1.0 - 5.5 10/09/2016 [facility] Segs-Bands # 4.9 K/CMM 1.5 - 8.1 10/09/2016 [facility] ED Abdomen/Pelvis IV contrast only CT ED Abdomen/Pelvis IV contrast only CT Patient Name: PEBBLES MILLS : 1960; Age: 56 years Male MR: [id number] Study: ED Abdomen/Pelvis IV contrast only CT 10/09/2016 6:55 PM LICENSED CLINICAL PSYCHOLOGIST Clinical Indication: Abdominal pain, acute Reports nausea and vomiting for 2 days and now having abdominal pain.. omni 100cc ct dlp 2293.36mgycm COMPARISON: 03/06/2016. TECHNIQUE: Helical imaging was performed diaphragm through the symphysis with IV multiplanar reformations obtained after the administration of IV contrast. FINDINGS: LOWER CHEST: The lung bases are clear. Cardiomegaly with coronary artery calcifications. ABDOMEN: No free air. LIVER: Normal. BILIARY TREE: Normal. GALLBLADDER: Surgically absent. PANCREAS: Normal. SPLEEN: Normal. ADRENALS: Normal. KIDNEYS: No hydronephrosis. Nonspecific bilateral perinephric stranding similar to the prior exam. 2-3 mm low-density right renal lesion. PELVIS: No pelvic mass. The urinary bladder is normal. BOWEL: No small bowel obstruction. Mild degree of colonic stool. Normal appendix. PERITONEUM: No free intraperitoneal fluid. RETROPERITONEUM: Mild atheromatous aortic calcification. There is no pathologic lymphadenopathy. MUSCULOSKELETAL: Mild thoracic spurring. L5-S1 spondylosis. IMPRESSION: 1. Normal appendix. 2. Cardiomegaly with coronary artery calcifications. 3. Postcholecystectomy. 4. L5-S1 spondylosis. 5. 2-3 mm low-density right renal lesion. The [employer] (ACR) consensus guidelines for asymptomatic patients age 18 and older recommend no further follow-up imaging for: Liver lesions less than or equal to 0.5 cm. Cystic renal lesion less than 1 cm. Adrenal lesions less than or equal to 1 cm. SL: [email or web address] 10/09/2016 - - Read by: Rogelio Peters MD Dictated Date/time: 10/09/16 20:21 Electronically Signed by: Rogelio Peters MD 10/09/16 20:30 FINAL REPORT [facility] Chest 1view DX Chest 1view DX EXAM: XR CHEST 1 VIEW DATE: 10/09/2016 5:42 PM LICENSED CLINICAL PSYCHOLOGIST INDICATION: Chest pain. COMPARISON: 12/25/2011. TECHNIQUE: A single AP view of the chest was obtained. FINDINGS: No focal consolidation or pneumothorax is identified. The cardiomediastinal silhouette is within normal limits. The costophrenic recesses are sharp and without effusion. No acute osseous abnormality is identified. IMPRESSION: No acute cardiopulmonary abnormality. SL: [id number] 10/09/2016 - - Read by: Callum Norton MD Dictated Date/time: 10/09/16 19:03 Electronically Signed by: Callum Norton MD 10/09/16 19:04 FINAL REPORT [facility] URINE AND STOOL UA Color Ltyellow 03/08/2016 [facility] URINE AND STOOL UA Urobilinogen <=1.0 mg/dL 0.1 - 1.0 03/08/2016 [facility] URINE AND STOOL UA Protein Negative mg/dL Negative mg/dL 03/08/2016 [facility] URINE AND STOOL UA pH 7.0 5.0 - 8.0 03/08/2016 [facility] URINE AND STOOL UA Ketones 20 mg/dL Negative mg/dL 03/08/2016 [facility] URINE AND STOOL UA Glucose 500 mg/dL Negative mg/dL 03/08/2016 [facility] URINE AND STOOL UA Turbidity Clear (03/08/16 2:02 PM) Clear 03/08/2016 [facility] URINE AND STOOL UA Spec Grav 1.014 <=1.030 03/08/2016 [facility] URINE AND STOOL UA Bili Negative *NA* (03/08/16 2:02 PM) Negative 03/08/2016 [facility] URINE AND STOOL UA Nitrite Negative (03/08/16 2:02 PM) Negative 03/08/2016 [facility] URINE AND STOOL UA Blood Negative (03/08/16 2:02 PM) Negative 03/08/2016 [facility] URINE AND STOOL UA Mucus Few /LPF None Seen /LPF 03/08/2016 [facility] URINE AND STOOL UA WBC null 0 - 5 03/08/2016 [facility] URINE AND STOOL UA Leuk Est Negative (03/08/16 2:02 PM) Negative 03/08/2016 [facility] URINE AND STOOL UA Sq Epi Occasional /LPF Few /LPF 03/08/2016 [facility] CHEM PANEL Lipase Lvl 414 unit/L 73 - 393 03/08/2016 [facility] CHEM PANEL Amylase Lvl 77 unit/L 25 - 115 03/08/2016 [facility] CHEM PANEL eGFR 93 mL/min/1.73m2 03/08/2016 Result Comment: The eGFR is calculated using the CKD-EPI formula. In most young, healthy individuals the eGFR will be >90 mL/min/1.73m2. The eGFR declines with age. An eGFR of 60-89 may be normal in some populations, particularly the elderly, for whom the CKD-EPI formula has not been extensively validated. Use of the eGFR is not recommended in the following populations: Individuals with unstable creatinine concentrations, including patients and those with serious co-morbid conditions. Patients with extremes in muscle mass or diet. The data above are obtained from the National Kidney Disease Education Program (NKDEP) which additionally recommends that when the eGFR is used in patients with extremes of body mass index for purposes of drug dosing, the eGFR should be multiplied by the estimated BMI. [facility] CHEM PANEL Calcium Lvl 9.3 mg/dL 8.5 - 10.5 03/08/2016 [facility] CHEM PANEL Total Protein 8.2 g/dL 6.4 - 8.4 03/08/2016 [facility] CHEM PANEL CO2 20 meq/L 24 - 32 03/08/2016 [facility] CHEM PANEL Bili Total 1.0 mg/dL 0.2 - 1.3 03/08/2016 [facility] CHEM PANEL ALT 37 unit/L 0 - 65 03/08/2016 [facility] CHEM PANEL AST 32 unit/L 0 - 37 03/08/2016 [facility] CHEM PANEL Albumin Lvl 4.0 g/dL 3.5 - 5.0 03/08/2016 [facility] CHEM PANEL Alk Phos 74 unit/L 39 - 136 03/08/2016 [facility] CHEM PANEL Potassium Lvl 3.8 meq/L 3.5 - 5.1 03/08/2016 [facility] CHEM PANEL Chloride Lvl 104 meq/L 95 - 109 03/08/2016 [facility] CHEM PANEL BUN 10 mg/dL 7 - 22 03/08/2016 [facility] CHEM PANEL Creatinine Lvl 0.93 mg/dL 0.50 - 1.40 03/08/2016 [facility] CHEM PANEL Sodium Lvl 136 meq/L 135 - 145 03/08/2016 [facility] CHEM PANEL Glucose Lvl 182 mg/dL 70 - 99 03/08/2016 [facility] CHEM PANEL AGAP 15.8 meq/L 10.0 - 20.0 03/08/2016 [facility] CHEM PANEL B/C Ratio 11 6 - 25 03/08/2016 [facility] CHEM PANEL A/G Ratio 1.0 0.7 - 1.6 03/08/2016 [facility] CHEM PANEL Globulin 4.2 g/dL 2.7 - 4.2 03/08/2016 [facility] HEMATOLOGY MCV 94.9 fL 80.0 - 94.0 03/08/2016 [facility] HEMATOLOGY RDW 13.1 % 11.5 - 14.5 03/08/2016 [facility] HEMATOLOGY Platelet 279 K/CMM 133 - 450 03/08/2016 [facility] HEMATOLOGY MCHC 34.4 g/dL 32.0 - 36.0 03/08/2016 [facility] MCH 32.6 pg 27.0 - 31.0 03/08/2016 [facility] HEMATOLOGY MPV 7.7 fL 7.4 - 10.4 03/08/2016 [facility] HEMATOLOGY Hct 44.5 % 42.0 - 54.0 03/08/2016 [facility] HEMATOLOGY WBC 10.6 K/CMM 3.7 - 10.4 03/08/2016 [facility] HEMATOLOGY Hgb 15.3 g/dL 14.0 - 18.0 03/08/2016 [facility] HEMATOLOGY RBC 4.69 M/CMM 4.70 - 6.10 03/08/2016 [facility] HEMATOLOGY Basophils 0.4 % 0.0 - 1.0 03/08/2016 [facility] HEMATOLOGY Monocytes 4.6 % 2.0 - 12.0 03/08/2016 [facility] HEMATOLOGY Eosinophils 0.1 % 0.0 - 4.0 03/08/2016 [facility] HEMATOLOGY Lymphocytes 30.5 % 20.0 - 40.0 03/08/2016 [facility] HEMATOLOGY Segs 64.4 % 45.0 - 75.0 03/08/2016 [facility] HEMATOLOGY Monocytes # 0.5 K/CMM 0.0 - 0.8 03/08/2016 [facility] HEMATOLOGY Lymphocytes # 3.2 K/CMM 1.0 - 5.5 03/08/2016 [facility] HEMATOLOGY Segs-Bands # 6.8 K/CMM 1.5 - 8.1 03/08/2016 [facility] URINE AND STOOL UA Bili Negative *NA* (03/06/16 5:35 PM) Negative 03/06/2016 [facility] URINE AND STOOL UA Leuk Est Negative (03/06/16 5:35 PM) Negative 03/06/2016 [facility] URINE AND STOOL UA Nitrite Negative (03/06/16 5:35 PM) Negative 03/06/2016 [facility] URINE AND STOOL UA Blood Negative (03/06/16 5:35 PM) Negative 03/06/2016 [facility] URINE AND STOOL UA RBC 5 /HPF 0 - 2 03/06/2016 [facility] URINE AND STOOL UA WBC 1 /HPF 0 - 5 03/06/2016 [facility] URINE AND STOOL UA Mucus Few /LPF None Seen /LPF 03/06/2016 [facility] URINE AND STOOL UA Protein Negative mg/dL Negative mg/dL 03/06/2016 [facility] URINE AND STOOL UA pH 6.0 5.0 - 8.0 03/06/2016 [facility] URINE AND STOOL UA Spec Grav 1.025 <=1.030 03/06/2016 [facility] URINE AND STOOL UA Turbidity Clear (03/06/16 5:35 PM) Clear 03/06/2016 [facility] URINE AND STOOL UA Color Yellow *NA* (03/06/16 5:35 PM) Yellow 03/06/2016 [facility] URINE AND STOOL UA Ketones 80 mg/dL Negative mg/dL 03/06/2016 [facility] URINE AND STOOL UA Glucose 50 mg/dL Negative mg/dL 03/06/2016 [facility] URINE AND STOOL UA Urobilinogen <=1.0 mg/dL 0.1 - 1.0 03/06/2016 [facility] URINE AND STOOL UA Sq Epi None Seen 03/06/2016 [facility] CHEM PANEL BUN 13 mg/dL 7 - 22 03/06/2016 [facility] CHEM PANEL Glucose Lvl 145 mg/dL 70 - 99 03/06/2016 [facility] CHEM PANEL Creatinine Lvl 0.86 mg/dL 0.50 - 1.40 03/06/2016 [facility] CHEM PANEL Potassium Lvl 3.6 meq/L 3.5 - 5.1 03/06/2016 [facility] CHEM PANEL Sodium Lvl 137 meq/L 135 - 145 03/06/2016 [facility] CHEM PANEL Chloride Lvl 102 meq/L 95 - 109 03/06/2016 [facility] CHEM PANEL eGFR 97 mL/min/1.73m2 03/06/2016 Result Comment: The eGFR is calculated using the CKD-EPI formula. In most young, healthy individuals the eGFR will be >90 mL/min/1.73m2. The eGFR declines with age. An eGFR of 60-89 may be normal in some populations, particularly the elderly, for whom the CKD-EPI formula has not been extensively validated. Use of the eGFR is not recommended in the following populations: Individuals with unstable creatinine concentrations, including patients and those with serious co-morbid conditions. Patients with extremes in muscle mass or diet. The data above are obtained from the National Kidney Disease Education Program (NKDEP) which additionally recommends that when the eGFR is used in patients with extremes of body mass index for purposes of drug dosing, the eGFR should be multiplied by the estimated BMI. [facility] CHEM PANEL Total Protein 8.5 g/dL 6.4 - 8.4 03/06/2016 [facility] CHEM PANEL CO2 24 meq/L 24 - 32 03/06/2016 [facility] CHEM PANEL Calcium Lvl 9.4 mg/dL 8.5 - 10.5 03/06/2016 [facility] CHEM PANEL Albumin Lvl 4.7 g/dL 3.5 - 5.0 03/06/2016 [facility] CHEM PANEL ALT 42 unit/L 0 - 65 03/06/2016 [facility] CHEM PANEL Alk Phos 82 unit/L 39 - 136 03/06/2016 [facility] CHEM PANEL Bili Total 1.4 mg/dL 0.2 - 1.3 03/06/2016 [facility] CHEM PANEL AST 35 unit/L 0 - 37 03/06/2016 [facility] CHEM PANEL B/C Ratio 15 6 - 25 03/06/2016 [facility] CHEM PANEL AGAP 14.6 meq/L 10.0 - 20.0 03/06/2016 [facility] CHEM PANEL Globulin 3.8 g/dL 2.7 - 4.2 03/06/2016 [facility] CHEM PANEL A/G Ratio 1.2 0.7 - 1.6 03/06/2016 [facility] CHEM PANEL Lipase Lvl 406 unit/L 73 - 393 03/06/2016 [facility] Lymphocytes 38.2 % 20.0 - 40.0 03/06/2016 [facility] HEMATOLOGY Segs 54.7 % 45.0 - 75.0 03/06/2016 [facility] HEMATOLOGY Eosinophils 0.4 % 0.0 - 4.0 03/06/2016 [facility] HEMATOLOGY Monocytes 6.3 % 2.0 - 12.0 03/06/2016 [facility] HEMATOLOGY Basophils 0.4 % 0.0 - 1.0 03/06/2016 [facility] Lymphocytes # 4.2 K/CMM 1.0 - 5.5 03/06/2016 [facility] Segs-Bands # 6.0 K/CMM 1.5 - 8.1 03/06/2016 [facility] Monocytes # 0.7 K/CMM 0.0 - 0.8 03/06/2016 [facility] Hct 44.2 % 42.0 - 54.0 03/06/2016 [facility] Hgb 15.2 g/dL 14.0 - 18.0 03/06/2016 [facility] RBC 4.69 M/CMM 4.70 - 6.10 03/06/2016 [facility] MCH 32.4 pg 27.0 - 31.0 03/06/2016 [facility] WBC 11.0 K/CMM 3.7 - 10.4 03/06/2016 [facility] Platelet 270 K/CMM 133 - 450 03/06/2016 [facility] RDW 12.8 % 11.5 - 14.5 03/06/2016 [facility] MCHC 34.3 g/dL 32.0 - 36.0 03/06/2016 [facility] HEMATOLOGY MCV 94.2 fL 80.0 - 94.0 03/06/2016 [facility] MPV 7.7 fL 7.4 - 10.4 03/06/2016 [facility] Abdomen/Pelvis w IV contrast CT Abdomen/Pelvis w IV contrast CT Study: Abdomen/Pelvis w IV contrast CT 03/06/2016 4:13 PM CDT Patient Name: PEBBLES MILLS MR: [id number] : 1960; Age: 55 years y/o Male Ordering Physician: Callum Cagle Clinical Indication: Acute left lower abdominal quadrant pain. Comparison: 03/17/2012. TECHNIQUE: Contiguous transaxial CT images were obtained from the diaphragm through the symphysis pubis.Sagittal and coronal reformatted images were prepared. IV CONTRAST: Yes GI CONTRAST: No. CT ABDOMEN WITH CONTRAST: BOWEL: Normal bowel gas pattern. Minimal scattered diverticula in the under distended thick-walled sigmoid colon, but without evidence of acute diverticulitis. Normal appendix. Normal under distended thick-walled stomach. PERITONEUM: No free intraperitoneal fluid or air. RETROPERITONEUM: Lymph nodes: No lymphadenopathy or mass. ABDOMINAL AORTA: Normal caliber abdominal aorta. SOLID ORGANS: 1. Cholecystectomy with mild central biliary prominence likely physiological in nature. 2. Normal liver, kidneys, adrenal glands, pancreas, and spleen. LUNG BASES: Clear lung bases. Normal size heart. OSSEOUS STRUCTURES: No fracture, dislocation, or suspicious focal osseous lesion. CT PELVIS WITH CONTRAST: URINARY BLADDER: Under distended appropriately thick walled. SOLID ORGANS: Enlarged prostate and seminal vesicles. LYMPH NODES: No lymphadenopathy or mass. FREE FLUID: No free pelvic fluid. OSSEOUS STRUCTURES: No fracture, dislocation, or suspicious focal osseous lesion. IMPRESSION: 1. Nonspecific bowel gas pattern with minimal sigmoid diverticulosis, but without evidence of acute diverticulitis. 2. Mildly enlarged prostate and seminal vesicles should be correlated clinically. 3. Cholecystectomy. SL: [id number] 03/06/2016 - - Read by: Jarod Nava MD Dictated Date/time: 03/06/16 18:39 Electronically Signed by: Jarod Nava MD 03/06/16 18:47 FINAL REPORT [facility] CHEMISTRY Lipase Lvl 260 unit/L 73 - 393 03/17/2012 Normal [facility] CHEMISTRY AGAP 18.8 meq/L 10.0 - 20.0 03/17/2012 Normal [facility] CHEMISTRY Globulin 4.1 g/dL 2.0 - 4.0 03/17/2012 HI [facility] CHEMISTRY A/G Ratio 1.1 0.7 - 1.6 03/17/2012 Normal [facility] CHEMISTRY B/C Ratio 8 6 - 25 03/17/2012 Normal [facility] CHEMISTRY Bili Total 1.5 mg/dL 0.2 - 1.3 03/17/2012 [facility] CHEMISTRY AST 24 unit/L 0 - 37 03/17/2012 Normal [facility] CHEMISTRY Alk Phos 91 unit/L 39 - 136 03/17/2012 Normal [facility] CHEMISTRY ALT 33 unit/L 0 - 65 03/17/2012 Normal [facility] CHEMISTRY Total Protein 8.5 g/dL 6.4 - 8.4 03/17/2012 [facility] CHEMISTRY Albumin Lvl 4.4 g/dL 3.5 - 5.0 03/17/2012 Normal [facility] CHEMISTRY Calcium Lvl 10.0 mg/dL 8.5 - 10.5 03/17/2012 Normal [facility] CHEMISTRY Glucose Lvl 225 mg/dL 70 - 99 03/17/2012 [place] 2Interpretive Data: Adult reference range values reflect the clinical guidelines of the [place] [employer]. [facility] CHEMISTRY Potassium Lvl 3.8 meq/L 3.5 - 5.1 03/17/2012 Normal [facility] CHEMISTRY Chloride Lvl 103 meq/L 95 - 109 03/17/2012 Normal [facility] CHEMISTRY CO2 21 meq/L 24 - 32 03/17/2012 LOW [facility] CHEMISTRY BUN 10 mg/dL 7 - 22 03/17/2012 Normal [facility] CHEMISTRY Creatinine Lvl 1.2 mg/dL 0.5 - 1.4 03/17/2012 Normal [facility] CHEMISTRY Sodium Lvl 139 meq/L 135 - 145 03/17/2012 Normal [facility] HEMATOLOGY MCHC 34.2 g/dL 32.0 - 36.0 03/17/2012 Normal [facility] HEMATOLOGY MCV 96.3 fL 80.0 - 94.0 03/17/2012 [facility] HEMATOLOGY Hct 46.4 % 42.0 - 54.0 03/17/2012 Normal [facility] HEMATOLOGY RBC 4.81 M/CMM 4.70 - 6.10 03/17/2012 Normal [facility] HEMATOLOGY Hgb 15.9 g/dL 14.0 - 18.0 03/17/2012 Normal [facility] HEMATOLOGY WBC 10.0 K/CMM 3.7 - 10.4 03/17/2012 Normal [facility] HEMATOLOGY MCH 32.9 pg 27.0 - 31.0 03/17/2012 [facility] HEMATOLOGY RDW 12.9 % 11.5 - 14.5 03/17/2012 Normal [facility] HEMATOLOGY Platelet 227 K/CMM 133 - 450 03/17/2012 Normal [facility] HEMATOLOGY MPV 7.9 fL 7.4 - 10.4 03/17/2012 Normal [facility] HEMATOLOGY Monocytes # 0.2 K/CMM 0.0 - 0.8 03/17/2012 Normal [facility] HEMATOLOGY Lymphocytes # 1.0 K/CMM 1.0 - 5.5 03/17/2012 Normal [facility] HEMATOLOGY Basophils # 0.0 K/CMM 0.0 - 0.2 03/17/2012 Normal [facility] HEMATOLOGY Eosinophils # 0.0 K/CMM 0.0 - 0.5 03/17/2012 Normal [facility] HEMATOLOGY RBC Morph Normal (03/17/2012 17:30:00) 03/17/2012 Normal [facility] HEMATOLOGY Plt Morph Normal (03/17/2012 17:30:00) 03/17/2012 Normal [facility] Segs-Bands # 8.8 K/CMM 1.5 - 8.1 03/17/2012 HI [facility] HEMATOLOGY Basophils 0.2 % 0.0 - 1.0 03/17/2012 Normal [facility] Lymphocytes 9.8 % 20.0 - 40.0 03/17/2012 LOW [facility] HEMATOLOGY Segs 87.7 % 45.0 - 75.0 03/17/2012 HI [facility] Monocytes 2.3 % 2.0 - 12.0 03/17/2012 Normal [facility] Eosinophils 0.0 % 0.0 - 4.0 03/17/2012 Normal [facility] BEDSIDE GLUCOSE TESTING Gluc POC Lifscn 197 mg/dL 70 - 99 03/17/2012 [place] 1Interpretive Data: Upper Reportable Limit: 200 mg/dL. [facility] BEDSIDE GLUCOSE TESTING Comment1 Notify RN/MD 03/17/2012 [facility] URINALYSIS UA Urobilinogen <=1.0 mg/dL
*NA*
(03/17/2012 17:24:00) <sup> </sup> 0.1 - 1.0 03/17/2012 [facility] URINALYSIS UA Mucus Few /LPF *NA* (03/17/2012 17:24:00) None Seen 03/17/2012 [facility] URINALYSIS UA RBC 1 /HPF 0 - 2 03/17/2012 Normal [facility] URINALYSIS UA WBC null 0 - 5 03/17/2012 Normal [facility] URINALYSIS UA Leuk Est Negative (03/17/2012 17:24:00) Negative 03/17/2012 [facility] URINALYSIS UA Sq Epi Occasional /LPF *NA* (03/17/2012 17:24:00) Few 03/17/2012 [facility] URINALYSIS UA Nitrite Negative (03/17/2012 17:24:00) Negative 03/17/2012 [facility] URINALYSIS UA Color Yellow *NA* (03/17/2012 17:24:00) Yellow 03/17/2012 [facility] URINALYSIS UA Blood Negative (03/17/2012 17:24:00) Negative 03/17/2012 [facility] URINALYSIS UA Bili Negative *NA* (03/17/2012 17:24:00) Negative 03/17/2012 [facility] URINALYSIS UA Ketones 80 mg/dL *ABN* (03/17/2012 17:24:00) Negative 03/17/2012 [facility] URINALYSIS UA Glucose 500 mg/dL *ABN* (03/17/2012 17:24:00) Negative 03/17/2012 [facility] URINALYSIS UA Protein Negative mg/dL (03/17/2012 17:24:00) Negative 03/17/2012 Normal [facility] URINALYSIS UA pH 7.0 5.0 - 8.0 03/17/2012 Normal [facility] URINALYSIS UA Turbidity Clear (03/17/2012 17:24:00) Clear 03/17/2012 [facility] URINALYSIS UA Spec Grav 1.025 <=1.030 03/17/2012 Normal [facility] URINALYSIS UA Urobilinogen <=1.0 mg/dL
*NA*
(02/16/2012 16:29:00) <sup> </sup> 0.1 - 1.0 02/16/2012 NA [facility] URINALYSIS UA Turbidity Clear (02/16/2012 16:29:00) Clear 02/16/2012 Normal [facility] URINALYSIS UA Spec Grav 1.017 <=1.030 02/16/2012 Normal [facility] URINALYSIS UA Protein Negative mg/dL (02/16/2012 16:29:00) Negative 02/16/2012 [facility] URINALYSIS UA pH 6.0 5.0 - 8.0 02/16/2012 Normal [facility] URINALYSIS UA Color Yellow *NA* (02/16/2012 16:29:00) Yellow 02/16/2012 NA [facility] URINALYSIS UA Ketones 80 mg/dL *ABN* (02/16/2012 16:29:00) Negative 02/16/2012 ABN [facility] URINALYSIS UA Glucose 150 mg/dL *ABN* (02/16/2012 16:29:00) Negative 02/16/2012 ABN [facility] URINALYSIS UA WBC null 0 - 5 02/16/2012 Normal [facility] URINALYSIS UA Leuk Est Negative (02/16/2012 16:29:00) Negative 02/16/2012 Normal [facility] URINALYSIS UA Bili Negative *NA* (02/16/2012 16:29:00) Negative 02/16/2012 NA [facility] URINALYSIS UA Blood Negative (02/16/2012 16:29:00) Negative 02/16/2012 Normal [facility] URINALYSIS UA Sq Epi None Seen 02/16/2012 NA [facility] URINALYSIS UA Mucus Few /LPF *NA* (02/16/2012 16:29:00) None Seen 02/16/2012 NA [facility] URINALYSIS UA RBC 1 /HPF 0 - 2 02/16/2012 Normal [facility] URINALYSIS UA Nitrite Negative (02/16/2012 16:29:00) Negative 02/16/2012 Normal [facility] CHEMISTRY A/G Ratio 1.0 0.7 - 1.6 02/16/2012 Normal [facility] CHEMISTRY AGAP 16.7 meq/L 10.0 - 20.0 02/16/2012 Normal [facility] CHEMISTRY B/C Ratio 15 6 - 25 02/16/2012 Normal [facility] CHEMISTRY Globulin 4.3 g/dL 2.0 - 4.0 02/16/2012 HI [facility] CHEMISTRY Glucose Lvl 176 mg/dL 70 - 99 02/16/2012 [facility] 1Interpretive Data: Adult reference range values reflect the clinical guidelines of the [place] [employer]. [facility] CHEMISTRY Bili Total 1.5 mg/dL 0.2 - 1.3 02/16/2012 HI [facility] CHEMISTRY AST 26 U/L 0 - 37 02/16/2012 Normal [facility] CHEMISTRY Creatinine Lvl 1.0 mg/dL 0.5 - 1.4 02/16/2012 Normal [facility] CHEMISTRY Sodium Lvl 138 meq/L 135 - 145 02/16/2012 Normal [facility] CHEMISTRY BUN 15 mg/dL 7 - 22 02/16/2012 Normal [facility] CHEMISTRY Potassium Lvl 3.7 meq/L 3.5 - 5.1 02/16/2012 Normal [facility] CHEMISTRY ALT 32 U/L 0 - 65 02/16/2012 Normal [facility] CHEMISTRY Alk Phos 83 U/L 39 - 136 02/16/2012 Normal [facility] CHEMISTRY Albumin Lvl 4.1 g/dL 3.5 - 5.0 02/16/2012 Normal [facility] CHEMISTRY Calcium Lvl 9.4 mg/dL 8.5 - 10.5 02/16/2012 Normal [facility] CHEMISTRY CO2 22 meq/L 24 - 32 02/16/2012 LOW [facility] CHEMISTRY Total Protein 8.4 g/dL 6.4 - 8.4 02/16/2012 Normal [facility] CHEMISTRY Chloride Lvl 103 meq/L 95 - 109 02/16/2012 Normal [facility] CHEMISTRY Lipase Lvl 389 U/L 73 - 393 02/16/2012 Normal [facility] HEMATOLOGY Hct 47.8 % 42.0 - 54.0 02/16/2012 Normal [facility] HEMATOLOGY Hgb 16.7 g/dL 14.0 - 18.0 02/16/2012 Normal [facility] HEMATOLOGY MCV 95.8 fL 80.0 - 94.0 02/16/2012 [facility] HEMATOLOGY MCH 33.6 pg 27.0 - 31.0 02/16/2012 [facility] HEMATOLOGY MPV 7.8 fL 7.4 - 10.4 02/16/2012 Normal [facility] HEMATOLOGY MCHC 35.0 g/dL 32.0 - 36.0 02/16/2012 Normal [facility] HEMATOLOGY RDW 12.5 % 11.5 - 14.5 02/16/2012 Normal [facility] HEMATOLOGY Platelet 260 K/CMM 133 - 450 02/16/2012 Normal [facility] HEMATOLOGY RBC 4.99 M/CMM 4.70 - 6.10 02/16/2012 Normal [facility] HEMATOLOGY WBC 10.3 K/CMM 3.7 - 10.4 02/16/2012 Normal [facility] HEMATOLOGY Basophils # 0.0 K/CMM 0.0 - 0.2 02/16/2012 Normal [facility] HEMATOLOGY Eosinophils # 0.1 K/CMM 0.0 - 0.5 02/16/2012 Normal [facility] HEMATOLOGY Monocytes # 0.7 K/CMM 0.0 - 0.8 02/16/2012 Normal [facility] HEMATOLOGY Lymphocytes # 3.0 K/CMM 1.0 - 5.5 02/16/2012 Normal [facility] HEMATOLOGY Basophils 0.3 % 0.0 - 1.0 02/16/2012 Normal [facility] HEMATOLOGY Segs-Bands # 6.5 K/CMM 1.5 - 8.1 02/16/2012 Normal [facility] HEMATOLOGY Monocytes 6.6 % 2.0 - 12.0 02/16/2012 Normal [facility] HEMATOLOGY Eosinophils 0.5 % 0.0 - 4.0 02/16/2012 Normal [facility] HEMATOLOGY Lymphocytes 29.2 % 20.0 - 40.0 02/16/2012 Normal [facility] HEMATOLOGY Segs 63.4 % 45.0 - 75.0 02/16/2012 [facility] URINALYSIS UA Color Ltyellow 12/25/2011 NA [facility] URINALYSIS UA Sq Epi None Seen 12/25/2011 [facility] URINALYSIS UA RBC 1 /HPF 0 - 2 12/25/2011 Normal [facility] URINALYSIS UA WBC null 0 - 5 12/25/2011 Normal [facility] URINALYSIS UA Urobilinogen 2.0 mg/dL 0.1 - 1.0 12/25/2011 [facility] URINALYSIS UA Leuk Est Negative (12/25/2011 14:35:00) Negative 12/25/2011 Normal [facility] URINALYSIS UA Nitrite Negative (12/25/2011 14:35:00) Negative 12/25/2011 Normal [facility] URINALYSIS UA Mucus Few /LPF *NA* (12/25/2011 14:35:00) None Seen 12/25/2011 NA [facility] URINALYSIS UA Blood Negative (12/25/2011 14:35:00) Negative 12/25/2011 Normal [facility] URINALYSIS UA Ketones 20 mg/dL *ABN* (12/25/2011 14:35:00) Negative 12/25/2011 ABN [facility] URINALYSIS UA Glucose 500 mg/dL *ABN* (12/25/2011 14:35:00) Negative 12/25/2011 ABN [facility] URINALYSIS UA Bili Negative *NA* (12/25/2011 14:35:00) Negative 12/25/2011 [facility] URINALYSIS UA Protein Negative mg/dL (12/25/2011 14:35:00) Negative 12/25/2011 Normal [facility] URINALYSIS UA Spec Grav 1.017 <=1.030 12/25/2011 Normal [facility] URINALYSIS UA pH 7.0 5.0 - 8.0 12/25/2011 Normal [facility] URINALYSIS UA Turbidity Slight *ABN* (12/25/2011 14:35:00) Clear 12/25/2011 ABN [facility] CHEMISTRY Glucose Lvl 194 mg/dL 70 - 99 12/25/2011 [place] 1Interpretive Data: Adult reference range values reflect the clinical guidelinesof the [place] [employer]. [facility] CHEMISTRY Calcium Lvl 9.6 mg/dL 8.5 - 10.5 12/25/2011 Normal [facility] CHEMISTRY Chloride Lvl 103 meq/L 95 - 109 12/25/2011 Normal [facility] CHEMISTRY Creatinine Lvl 0.9 mg/dL 0.5 - 1.4 12/25/2011 Normal [facility] CHEMISTRY Sodium Lvl 139 meq/L 135 - 145 12/25/2011 Normal [facility] CHEMISTRY Potassium Lvl 3.5 meq/L 3.5 - 5.1 12/25/2011 Normal [facility] CHEMISTRY Alk Phos 78 U/L 39 - 136 12/25/2011 Normal [facility] CHEMISTRY Bili Total 1.6 mg/dL 0.2 - 1.3 12/25/2011 [facility] CHEMISTRY ALT 32 U/L 0 - 65 12/25/2011 Normal [facility] CHEMISTRY Albumin Lvl 4.4 g/dL 3.5 - 5.0 12/25/2011 Normal [facility] CHEMISTRY Total Protein 8.5 g/dL 6.4 - 8.4 12/25/2011 [facility] CHEMISTRY AST 21 U/L 0 - 37 12/25/2011 Normal [facility] CHEMISTRY CO2 20 meq/L 24 - 32 12/25/2011 LOW [facility] CHEMISTRY BUN 12 mg/dL 7 - 22 12/25/2011 Normal [facility] CHEMISTRY A/G Ratio 1.1 0.7 - 1.6 12/25/2011 Normal [facility] CHEMISTRY Globulin 4.1 g/dL 2.0 - 4.0 12/25/2011 [facility] CHEMISTRY AGAP 19.5 meq/L 10.0 - 20.0 12/25/2011 Normal [facility] CHEMISTRY B/C Ratio 13 6 - 25 12/25/2011 Normal [facility] CHEMISTRY Lipase Lvl 318 U/L 73 - 393 12/25/2011 Normal [facility] HEMATOLOGY Segs 71.7 % 45.0 - 75.0 12/25/2011 Normal [facility] HEMATOLOGY Lymphocytes 23.2 % 20.0 - 40.0 12/25/2011 Normal [facility] HEMATOLOGY Monocytes 4.7 % 2.0 - 12.0 12/25/2011 Normal [facility] HEMATOLOGY Eosinophils 0.1 % 0.0 - 4.0 12/25/2011 Normal [facility] HEMATOLOGY Basophils 0.3 % 0.0 - 1.0 12/25/2011 Normal [facility] HEMATOLOGY Segs-Bands # 6.5 K/CMM 1.5 - 8.1 12/25/2011 Normal [facility] HEMATOLOGY Lymphocytes # 2.1 K/CMM 1.0 - 5.5 12/25/2011 Normal [facility] HEMATOLOGY Monocytes # 0.4 K/CMM 0.0 - 0.8 12/25/2011 Normal [facility] HEMATOLOGY Basophils # 0.0 K/CMM 0.0 - 0.2 12/25/2011 Normal [facility] HEMATOLOGY Eosinophils # 0.0 K/CMM 0.0 - 0.5 12/25/2011 Normal [facility] HEMATOLOGY MCHC 35.2 g/dL 32.0 - 36.0 12/25/2011 Normal [facility] HEMATOLOGY MCV 95.8 fL 80.0 - 94.0 12/25/2011 HI [facility] HEMATOLOGY MCH 33.7 pg 27.0 - 31.0 12/25/2011 [facility] HEMATOLOGY RDW 13.0 % 11.5 - 14.5 12/25/2011 Normal [facility] HEMATOLOGY Platelet 249 K/CMM 133 - 450 12/25/2011 Normal [facility] HEMATOLOGY MPV 7.9 fL 7.4 - 10.4 12/25/2011 Normal [facility] HEMATOLOGY WBC 9.1 K/CMM 3.7 - 10.4 12/25/2011 Normal [facility] HEMATOLOGY RBC 4.79 M/CMM 4.70 - 6.10 12/25/2011 Normal [facility] HEMATOLOGY Hgb 16.2 g/dL 14.0 - 18.0 12/25/2011 Normal [facility] HEMATOLOGY Hct 45.9 % 42.0 - 54.0 12/25/2011 Normal [facility] Vital Signs Vital Sign Value Date Comments Source Respitory Rate 15 04/11/2017 [facility] Systolic (mm Hg) 99 04/11/2017 [facility] Diastolic (mm Hg) 66 04/11/2017 [facility] Respitory Rate 18 04/11/2017 [facility] Systolic (mm Hg) 98 04/11/2017 [facility] Diastolic (mm Hg) 69 04/11/2017 [facility] Respitory Rate 14 04/11/2017 [facility] Systolic (mm Hg) 135 04/11/2017 [facility] Diastolic (mm Hg) 71 04/11/2017 [facility] BMI Calculated 32.62 04/10/2017 [facility] Weight 109.091 04/10/2017 [facility] Temperature Oral (F) 98.6 F 04/10/2017 [facility] Heart Rate 99 04/10/2017 [facility] Height 182.88 cm 04/10/2017 [facility] Temperature Oral (F) 97.9 F 01/21/2017 [facility] Heart Rate 61 01/21/2017 [facility] Systolic (mm Hg) 122 01/21/2017 [facility] Diastolic (mm Hg) 74 01/21/2017 [facility] Respitory Rate 16 01/21/2017 [facility] BMI Calculated 32.62 01/21/2017 [facility] Weight 109.091 01/21/2017 [facility] Height 182.88 cm 01/21/2017 [facility] Systolic (mm Hg) 142 01/21/2017 [facility] Diastolic (mm Hg) 79 01/21/2017 [facility] Heart Rate 72 01/21/2017 [facility] Temperature Oral (F) 98.4 F 01/21/2017 [facility] Respitory Rate 17 01/21/2017 [facility] Respitory Rate 17 10/10/2016 [facility] Temperature Oral (F) 98 F 10/10/2016 [facility] Systolic (mm Hg) 107 10/10/2016 [facility] Diastolic (mm Hg) 60 10/10/2016 [facility] Temperature Oral (F) 98 F 10/10/2016 [facility] Respitory Rate 16 10/10/2016 [facility] Systolic (mm Hg) 147 10/10/2016 [facility] Diastolic (mm Hg) 72 10/10/2016 [facility] Systolic (mm Hg) 153 10/10/2016 [facility] Diastolic (mm Hg) 76 10/10/2016 [facility] Respitory Rate 17 10/10/2016 [facility] Temperature Oral (F) 98.1 F 10/10/2016 [facility] Heart Rate 68 10/10/2016 [facility] Heart Rate 79 10/10/2016 [facility] Weight 118.182 10/09/2016 [facility] BMI Calculated 35.34 10/09/2016 [facility] Height 182.88 cm 10/09/2016 [facility] Heart Rate 75 10/09/2016 [facility] Respitory Rate 18 03/08/2016 [facility] Temperature Oral (F) 97.9 F 03/08/2016 [facility] Heart Rate 71 03/08/2016 [facility] Systolic (mm Hg) 112 03/08/2016 [facility] Diastolic (mm Hg) 72 03/08/2016 [facility] Heart Rate 63 03/08/2016 [facility] Respitory Rate 17 03/08/2016 [facility] Temperature Oral (F) 98.1 F 03/08/2016 [facility] Systolic (mm Hg) 111 03/08/2016 [facility] Diastolic (mm Hg) 68 03/08/2016 [facility] Systolic (mm Hg) 138 03/08/2016 [facility] Diastolic (mm Hg) 71 03/08/2016 [facility] Respitory Rate 17 03/08/2016 [facility] Heart Rate 67 03/08/2016 [facility] Weight 118.182 03/08/2016 [facility] BMI Calculated 35.34 03/08/2016 [facility] Height 182.88 cm 03/08/2016 [facility] Temperature Oral (F) 98.1 F 03/08/2016 [facility] Systolic (mm Hg) 123 03/07/2016 [facility] Diastolic (mm Hg) 67 03/07/2016 [facility] Respitory Rate 18 03/07/2016 [facility] Temperature Oral (F) 98.8 F 03/07/2016 [facility] Heart Rate 59 03/07/2016 [facility] Respitory Rate 18 03/07/2016 [facility] Heart Rate 58 03/07/2016 [facility] Systolic (mm Hg) 118 03/07/2016 [facility] Diastolic (mm Hg) 69 03/07/2016 [facility] Temperature Oral (F) 98.6 F 03/07/2016 [facility] Systolic (mm Hg) 124 03/07/2016 [facility] Diastolic (mm Hg) 71 03/07/2016 [facility] Temperature Oral (F) 98.5 F 03/07/2016 [facility] Heart Rate 59 03/07/2016 [facility] Respitory Rate 18 03/07/2016 [facility] Weight 118.182 03/07/2016 [facility] Height 182.88 cm 03/07/2016 [facility] BMI Calculated 35.34 03/07/2016 [facility] Height 182.88 cm 03/06/2016 [facility] Weight 118.182 03/06/2016 [facility] BMI Calculated 35.34 03/06/2016 [facility] Weight 113.636 03/17/2012 [facility] Height 182.88 cm 03/17/2012 [facility] Height 182.88 cm 02/16/2012 [facility] Weight 118.182 02/16/2012 [facility] Systolic (mm Hg) 106 12/26/2011 [facility] Diastolic (mm Hg) 69 12/26/2011 [facility] Temperature Oral (F) 98.9 F 12/26/2011 [facility] Heart Rate 66 12/26/2011 [facility] Respitory Rate 18 12/26/2011 [facility] Heart Rate 65 12/26/2011 [facility] Temperature Oral (F) 98.4 F 12/26/2011 [facility] Systolic (mm Hg) 112 12/26/2011 [facility] Respitory Rate 18 12/26/2011 [facility] Diastolic (mm Hg) 73 12/26/2011 [facility] Respitory Rate 20 12/26/2011 [facility] Systolic (mm Hg) 102 12/26/2011 [facility] Diastolic (mm Hg) 56 12/26/2011 [facility] Temperature Oral (F) 98.1 F 12/26/2011 [facility] Heart Rate 56 12/26/2011 [facility] Weight 118.182 12/25/2011 [facility] Height 182.88 cm 12/25/2011 [facility] Height 182.88 cm 12/25/2011 [facility] Weight 118.182 12/25/2011 [facility] Encounters Location Location Details Encounter Type Encounter Number Reason For Visit Attending Provider ADM Date DC Date Status Source [facility] OU [id number] ABDOMINAL PAIN TASO MOUGOURIS 12/25/2011 12/26/2011 Active [facility] Emergency [id number] HAWA PALACIOS 02/16/2012 02/16/2012 Active [facility] Emergency [id number] LIZA VASQUEZ 03/17/2012 03/17/2012 Active [facility] OBS Observation Patient [id number] Alexandra Smith 03/06/2016 03/07/2016 [facility] [id number] Zena Conde 03/08/2016 03/08/2016 [facility] Emergency [id number] Jennifer Newell 10/09/2016 10/10/2016 [facility] Emergency [id number] Jakob Heller 01/21/2017 01/21/2017 [facility] Emergency [id number] Priscila Alcanter 04/10/2017 04/11/2017 [facility] Procedures Procedure Code Date Perfomer Comments Source Cholecystectomy [id number] [facility] Knee joint operation [id number] [facility]
--- OUTSIDE RECORDS SUMMARY | 2018-11-11 14:49 | XMS REPORT | Summary of Care ---
Author Author [facility] Organization [facility] Address Unknown Phone Unavailable Encounter CARMELA Rushing(CHRIS) [id number] Date(s): 04/10/17 - 04/10/17 [facility] [address] [place] [address]- Discharge Diagnosis: Nausea and vomiting Discharge Diagnosis: Acute epigastric pain Discharge Diagnosis: GERD (gastroesophageal reflux disease) Discharge Disposition: Home or Self Care Attending Physician: Priscila Sarkar MD Vital Signs 1 2 3 Most recent to oldest [Reference Range]: 182.88 cm (04/10/17 3:34 PM) Height 98.6 DegF (04/10/17 3:34 PM) Temperature Oral [96.4-99.1 DegF] 99/66 mmHg (04/10/17 11:20 PM) 98/69 mmHg (04/10/17 11:00 PM) 135/71 mmHg (04/10/17 9:48 PM) Blood Pressure [90-140/60-90 mmHg] 15 BRMIN (04/10/17 11:20 PM) 18 BRMIN (04/10/17 11:00 PM) 14 BRMIN (04/10/17 10:40 PM) Respiratory Rate [14-20 BRMIN] 99 bpm (04/10/17 3:34 PM) Peripheral Pulse Rate [60-100 bpm] 109.091 kg (04/10/17 3:34 PM) Weight 32.62 m2 (04/10/17 3:34 PM) Body Mass Index Problem List Condition Effective Dates Status Health [...] Originally documented as PENICILLIN. hives, rash,nausea Medications fentaNYL 50 microgram, 1 mL, Route: IVP, Drug form: INJ, ONCE, Dosing Weight 109.091, kg, Priority: STAT, Start date: 04/10/17 21:22:00 CDT, Stop date: 04/10/17 21:22:00 CDT Notes: (Same as: Sublimaze) Preservative free. Start Date: 04/10/17 Stop Date: 04/10/17 Status: Completed GI cocktail 30 mL, Route: PO, Drug Form: SUSP, Dosing Weight 109.091, kg, ONCE, STAT, Start date: 04/10/17 21:22:00 CDT, Stop date: 04/10/17 21:22:00 CDT Notes: G.I. Cocktail=antacid with simethicone 22.5 mL - lidocaine viscous 7.5 mL Start Date: 04/10/17 Stop Date: 04/10/17 Status: Completed Magic Mouth Wash (Maalox/Benadryl/Carafate) 1:1:1 5 ml, S&SPIT, QID, PRN Pain Score 6-10, # 180 ml, 0 Refill(s) Start Date: 04/10/17 Status: Ordered Phenergan 12.5 mg rectal suppository 12.5 mg=1 supp, NM, Q4H, PRN Nausea & Vomiting, # 12 supp, 0 Refill(s) Start Date: 04/10/17 Stop Date: 04/12/17 Status: Ordered Saline Flush 0.9% 10 mL, Route: IVP, Drug Form: INJ, Dosing Weight 109.091, kg, PRN, PRN Line Flus h, Start date: 04/10/17 15:29:00 CDT, Duration: 30 day, Stop date: 05/10/17 15:2 8:00 CDT Notes: (Same as: BD Posiflush) Start Date: 04/10/17 Stop Date: 04/11/17 Status: Discontinued Zofran 4 mg, 2 mL, Route: IVP, Drug form: INJ, ONCE, Dosing Weight 109.091, kg, Priorit y: STAT, Start date: 04/10/17 21:22:00 CDT, Stop date: 04/10/17 21:22:00 CDT Notes: (Same as: Zofran) MEDICATION WASTE Product Size: 4 mgProduct Was pramod: ___ mg Start Date: 04/10/17 Stop Date: 04/10/17 Status: Completed Results ELECTROLYTES Most recent to 1 oldest [Reference Range]: Sodium Lvl [135-145 137 mEq/L mEq/L] (04/10/17 8:01 PM) Potassium Lvl 3.9 mEq/L [3.5-5.1 mEq/L] (04/10/17 8:01 PM) Chloride Lvl [95-109 100 mEq/L mEq/L] (04/10/17 8:01 PM) CO2 [24-32 mEq/L] 30 mEq/L (04/10/17 8:01 PM) AGAP [10.0-20.0 10.9 mEq/L mEq/L] (04/10/17 8:01 PM) CHEM PANEL Most recent to 1 oldest [Reference Range]: Creatinine Lvl 1.00 mg/dL [0.50-1.40 mg/dL] (04/10/17 8:01 PM) eGFR 83 mL/min/1.73m2 1 *NA* (04/10/17 8:01 PM) BUN [7-22 mg/dL] 14 mg/dL (04/10/17 8:01 PM) B/C Ratio [6-25] 14 (04/10/17 8:01 PM) Glucose Lvl [70-99 191 mg/dL mg/dL] *HI* (04/10/17 8:01 PM) Total Protein 8.5 g/dL [6.4-8.4 g/dL] *HI* (04/10/17 8:01 PM) Albumin Lvl [3.5-5.0 3.9 g/dL g/dL] (04/10/17 8:01 PM) Globulin [2.7-4.2 4.6 g/dL g/dL] *HI* (04/10/17 8:01 PM) A/G Ratio [0.7-1.6] 0.8 (04/10/17 8:01 PM) Calcium Lvl 9.6 mg/dL [8.5-10.5 mg/dL] (04/10/17 8:01 PM) ALT [0-65 unit/L] 28 unit/L (04/10/17 8:01 PM) AST [0-37 unit/L] 21 unit/L (04/10/17 8:01 PM) Alk Phos [39-136 105 unit/L unit/L] (04/10/17 8:01 PM) Bili Total [0.2-1.3 1.0 mg/dL mg/dL] (04/10/17 8:01 PM) Lipase Lvl [73-393 261 unit/L unit/L] (04/10/17 8:01 PM) 1Result Comment: The eGFR is calculated using the [...] from the National Kidney Disease Education Program ( NKDEP) which additionally recommends that when the eGFR is used in patients with extremes of body mass index for purposes of drug dosing, the eGFR should be mul tiplied by the estimated BMI. CARDIAC ENZYMES Most recent to 1 oldest [Reference Range]: Troponin-I <0.02 ng/mL [0.00-0.40 ng/mL] (04/10/17 8:01 PM) URINE AND STOOL Most recent to 1 oldest [Reference Range]: UA Turbidity [Clear] Clear (04/10/17 9:54 PM) UA Color [Yellow] Yellow *NA* (04/10/17 9:54 PM) UA pH [5.0-8.0] 7.0 (04/10/17 9:54 PM) UA Spec Grav 1.015 [<=1.030] (04/10/17 9:54 PM) UA Glucose 250 [Negative] *ABN* (04/10/17 9:54 PM) UA Blood [Negative] Negative (04/10/17 9:54 PM) UA Ketones [Negative 40 mg/dL mg/dL] *ABN* (04/10/17 9:54 PM) UA Protein [Negative 30 mg/dL mg/dL] *ABN* (04/10/17 9:54 PM) UA Urobilinogen 1.0 EU/dL [0.1-1.0 EU/dL] (04/10/17 9:54 PM) UA Bili [Negative] Small *ABN* (04/10/17 9:54 PM) UA Leuk Est Negative [Negative] (04/10/17 9:54 PM) UA Nitrite Negative [Negative] (04/10/17 9:54 PM) UA WBC [0-5 /HPF] 2 /HPF (04/10/17 9:54 PM) UA RBC [0-2 /HPF] 1 /HPF (04/10/17 9:54 PM) UA Bacteria [None Occasional /HPF Seen /HPF] *NA* (04/10/17 9:54 PM) UA Sq Epi [Few] None Seen (04/10/17 9:54 PM) UA Hyal Cast [0-2 4 /LPF /LPF] *HI* (04/10/17 9:54 PM) UA Mucus [None Seen Many /LPF /LPF] *ABN* (04/10/17 9:54 PM) HEMATOLOGY Most recent to 1 oldest [Reference Range]: WBC [3.7-10.4 K/CMM] 12.5 K/CMM *HI* (04/10/17 8:01 PM) RBC [4.70-6.10 4.60 M/CMM M/CMM] *LOW* (04/10/17 8:01 PM) Hgb [14.0-18.0 g/dL] 15.0 g/dL (04/10/17 8:01 PM) Hct [42.0-54.0 %] 43.0 % (04/10/17 8:01 PM) MCV [80.0-94.0 fL] 93.4 fL (04/10/17 8:01 PM) MCH [27.0-31.0 pg] 32.5 pg *HI* (04/10/17 8:01 PM) MCHC [32.0-36.0 34.8 g/dL g/dL] (04/10/17 8:01 PM) RDW [11.5-14.5 %] 12.8 % (04/10/17 8:01 PM) Platelet [133-450 305 K/CMM K/CMM] (04/10/17 8:01 PM) MPV [7.4-10.4 fL] 6.7 fL *LOW* (04/10/17 8:01 PM) Segs [45.0-75.0 %] 87.7 % *HI* (04/10/17 8:01 PM) Lymphocytes 9.1 % [20.0-40.0 %] *LOW* (04/10/17 8:01 PM) Monocytes [2.0-12.0 3.1 % %] (04/10/17 8:01 PM) Basophils [0.0-1.0 0.1 % %] (04/10/17 8:01 PM) Segs-Bands # 11.0 K/CMM [1.5-8.1 K/CMM] *HI* (04/10/17 8:01 PM) Lymphocytes # 1.1 K/CMM [1.0-5.5 K/CMM] (04/10/17 8:01 PM) Monocytes # [0.0-0.8 0.4 K/CMM K/CMM] (04/10/17 8:01 PM) Immunizations No data available for this section Procedures Procedure Date Related Diagnosis Body Site Cholecystectomy Knee joint operation Social History Social History Type Response Smoking Status Never smoker; Ready to change: No; Concerns about tobacco use in household: No; Exposure to Tobacco Smoke None; Cigarette Smoking Last 365 Days No; Reg Smoking Cessation Counseling No Assessment and Plan No data available for this section
--- OUTSIDE RECORDS SUMMARY | 2018-11-11 14:49 | XMS REPORT | Summary of Care ---
Author Author [facility] Organization [facility] Address Unknown Phone Unavailable Encounter CARMELA Rushing(CHRIS) [id number] Date(s): 03/06/16 - 03/07/16 [facility] [address] [place] [address]- Discharge Diagnosis: Lower abdominal pain, unspecified Discharge Diagnosis: Nausea with vomiting, unspecified Discharge Disposition: Home or Self Care Attending Physician: Alexandra Smith MD Admitting Physician: Alexandra Smith MD Vital Signs 1 2 3 Most recent to oldest [Reference Range]: 182.88 cm (03/06/16 8:38 PM) 182.88 cm (03/06/16 3:49 PM) Height 98.8 DegF (03/07/16 11:17 AM) 98.6 DegF (03/07/16 7:32 AM) 98.5 DegF (03/07/16 4:44 AM) Temperature Oral [96.4-99.1 DegF] 123/67 mmHg (03/07/16 11:17 AM) 118/69 mmHg (03/07/16 7:32 AM) 124/71 mmHg (03/07/16 4:44 AM) Blood Pressure [90-140/60-90 mmHg] 18 BRMIN (03/07/16 11:17 AM) 18 BRMIN (03/07/16 7:32 AM) 18 BRMIN (03/07/16 4:44 AM) Respiratory Rate [14-20 BRMIN] 59 bpm *LOW* (03/07/16 11:17 AM) 58 bpm *LOW* (03/07/16 7:32 AM) 59 bpm *LOW* (03/07/16 4:44 AM) Peripheral Pulse Rate [60-100 bpm] 118.182 kg (03/06/16 8:38 PM) 118.182 kg (8/5/16 3:49 PM) Weight 35.34 m2 (03/06/16 8:38 PM) 35.34 m2 (03/06/16 3:49 PM) Body Mass Index Problem List Condition [...] Originally documented as PENICILLIN. hives, rash,nausea Medications acetaminophen 650 mg, 2 tab, Route: PO, Drug form: TAB, Q4H, Dosing Weight 118.182, kg, PRN Pa in 1-3/Temp > 100.4 F, Start date: 03/06/16 20:24:00 CDT, Duration: 30 day, Stop date: 04/05/16 20:23:00 CDT Notes: Do not exceed 4 gm/day. (Same as: Tylenol) Start Date: 03/06/16 Stop Date: 03/07/16 Status: Discontinued Cipro 400 mg, 200 mL, Route: IVPB, Drug form: INJ, ONCE, Dosing Weight 118.182, kg, Pr iority: STAT, Start date: 03/06/16 19:26:00 CDT, Stop date: 03/06/16 19:26:00 CD T Notes: Do not refrigerate Start Date: 03/06/16 Stop Date: 03/06/16 Status: Completed Cipro 500 mg oral tablet 500 mg=1 tab, PO, Q12H, X 7 day, # 14 tab, 0 Refill(s) Start Date: 03/06/16 Stop Date: 03/13/16 Status: Ordered Cipro 500 mg oral tablet 500 mg=1 tab, PO, Q12H, X 7 day, # 14 tab, 0 Refill(s) Start Date: 03/07/16 Stop Date: 03/14/16 Status: Ordered ciprofloxacin 400 mg, 200 mL, Route: IVPB, Drug form: INJ, [id number], Dosing Weight 118.182, kg, Start date: 03/07/16 11:00:00 CDT, Duration: 30 day, Stop date: 04/05/16 23:00: 00 CDT Notes: Do not refrigerate Start Date: 03/07/16 Stop Date: 03/07/16 Status: Discontinued D5W 1/2NS 1,000 mL 1,000 mL, Rate: 125 ml/hr, Infuse over: 8 hr, Route: IV, Dosing Weight 118.182 k g, Total Volume: 1,000, Start date: 03/06/16 20:24:00 CDT, Duration: 30 day, Sto p date: 04/05/16 20:23:00 CDT Start Date: 03/06/16 Stop Date: 03/06/16 Status: Discontinued Dilaudid 1 mg, 1 mL, Route: IV, Drug form: INJ, ONCE, Dosing Weight 118.182, kg, Start da te: 03/06/16 16:13:00 CDT, Stop date: 03/06/16 16:13:00 CDT Start Date: 03/06/16 Stop Date: 03/06/16 Status: Completed Dilaudid 1 mg, 1 mL, Route: IV, Drug form: INJ, ONCE, Dosing Weight 118.182, kg, Start da te: 03/06/16 19:13:00 CDT, Stop date: 03/06/16 19:13:00 CDT Start Date: 03/06/16 Stop Date: 03/06/16 Status: Completed Flagyl 500 mg, 100 mL, Route: IVPB, Drug form: INJ, [id number], Dosing Weight 118.182, kg, Start date: 03/07/16 11:00:00 CDT, Duration: 30 day, Stop date: 04/06/16 3:00:00 CDT Notes: (Same as: Flagyl) Avoid alcohol. Start Date: 03/07/16 Stop Date: 03/07/16 Status: Discontinued Flagyl 500 mg, 100 mL, Route: IVPB, Drug form: INJ, ONCE, Dosing Weight 118.182, kg, Pr iority: STAT, Start date: 03/06/16 19:26:00 CDT, Stop date: 03/06/16 19:26:00 CD T Notes: (Same as: Flagyl) Avoid alcohol. Start Date: 03/06/16 Stop Date: 03/06/16 Status: Completed Flagyl 500 mg oral tablet 500 mg=1 tab, PO, BID, X 7 day, # 14 tab, 0 Refill(s) Start Date: 03/06/16 Stop Date: 03/13/16 Status: Ordered Flagyl 500 mg oral tablet 500 mg=1 tab, PO, Q8H, X 7 day, # 21 tab, 0 Refill(s) Start Date: 03/07/16 Stop Date: 03/14/16 Status: Ordered metFORMIN 500 mg oral tablet, extended release 500 mg=1 tab, PO, BID, 0 Refill(s) Start Date: 03/06/16 Status: Ordered morphine Sulfate 4 mg, 2 mL, Route: IV, Drug form: INJ, ONCE, Dosing Weight 118.182, kg, Start da te: 03/06/16 15:52:00 CDT, Stop date: 03/06/16 15:52:00 CDT Notes: (Same as:MORPhine Sulfate) Start Date: 03/06/16 Stop Date: 03/06/16 Status: Completed morphine Sulfate 2 mg, 1 mL, Route: IVP, Drug form: INJ, Q4H, Dosing Weight 118.182, kg, PRN Pain Score 7-10, Start date: 03/06/16 20:24:00 CDT, Duration: 30 day, Stop date: 11/15 20:23:00 CDT Notes: (Same as:MORPhine Sulfate) Start Date: 03/06/16 Stop Date: 03/07/16 Status: Discontinued NS (Bolus) IV 1,000 mL, 1,000 ml/hr, Infuse Over: 1 hr, Route: IV, 1,000, Drug form: INJ, ONCE , Priority: STAT, Dosing Weight 118.182 kg, Start date: 03/06/16 16:13:00 CDT, D uration: 1 doses or times, Stop date: 03/06/16 16:13:00 CDT Start Date: 03/06/16 Stop Date: 03/06/16 Status: Completed NS (Bolus) IV 1,000 mL, 1,000 ml/hr, Infuse Over: 1 hr, Route: IV, ONCE, Priority: STAT, Dosin g Weight 118.182 kg, Start date: 03/06/16 15:53:00 CDT, Duration: 1 doses or joseph es, Stop date: 03/06/16 15:53:00 CDT Start Date: 03/06/16 Stop Date: 03/06/16 Status: Completed ondansetron 4 mg, 2 mL, Route: IVP, Drug form: INJ, ONCE, Dosing Weight 118.182, kg, Priorit y: STAT, Start date: 03/06/16 15:53:00 CDT, Stop date: 03/06/16 15:53:00 CDT Notes: (Same as: Zofran) MEDICATION WASTE Product Size: 4 mgProduct Was pramod: ___ mg Start Date: 03/06/16 Stop Date: 03/06/16 Status: Completed Phenergan 12.5 mg, Route: IVPB, ONCE, Dosing Weight 118.182, kg, Priority: STAT, Start beatriz e: 03/06/16 19:49:00 CDT, Stop date: 03/06/16 19:49:00 CDT Start Date: 03/06/16 Stop Date: 03/06/16 Status: Completed Protonix 40 mg, Route: IVP, Drug form: INJ, ONCE, Dosing Weight 118.182, kg, Priority: ST AT, Start date: 03/06/16 16:13:00 CDT, Stop date: 03/06/16 16:13:00 CDT Notes: For IV push reconstitute with 10 ml 0.9% sodium chloride and push over 2 minutes. (Same as: Protonix) Start Date: 03/06/16 Stop Date: 03/06/16 Status: Completed Saline Flush 0.9% 10 ml, Route: IVP, Drug Form: INJ, Dosing Weight 118.182, kg, PRN, PRN Line Flus h, Start date: 03/06/16 20:24:00 CDT, Duration: 30 day, Stop date: 04/05/16 20:2 3:00 CDT Notes: (Same as: BD Posiflush) Start Date: 03/06/16 Stop Date: 03/07/16 Status: Discontinued Saline Flush 0.9% 10 mL, Route: IVP, Drug Form: INJ, Dosing Weight 118.182, kg, PRN, PRN Line Flus h, Start date: 03/06/16 15:52:00 CDT, Duration: 30 day, Stop date: 04/05/16 15:5 1:00 CDT Notes: (Same as: BD Posiflush) Start Date: 03/06/16 Stop Date: 03/07/16 Status: Discontinued sodium chloride 0.9% 1000 ml INJ 1,000 mL 1,000 mL, Rate: 125 ml/hr, Infuse over: 8 hr, Route: IV, Dosing Weight 118.182 k g, Total Volume: 1,000, Start date: 03/06/16 22:37:00 CDT, Duration: 30 day, Sto p date: 04/05/16 22:36:00 CDT Start Date: 03/06/16 Stop Date: 03/07/16 Status: Discontinued Zofran 4 mg, 2 mL, Route: IVP, Drug form: INJ, ONCE, Dosing Weight 118.182, kg, Priorit y: STAT, Start date: 03/06/16 19:13:00 CDT, Stop date: 03/06/16 19:13:00 CDT Notes: (Same as: Zofran) MEDICATION WASTE Product Size: 4 mgProduct Was pramod: _0__ mg Start Date: 03/06/16 Stop Date: 03/06/16 Status: Completed Zofran ODT 4 mg oral tablet, disintegrating 4 mg=1 tab, PO, BID, PRN Nausea and Vomiting, Dissolve tab under tongue, X 4 day , # 8 tab, 0 Refill(s) Start Date: 03/06/16 Stop Date: 03/10/16 Status: Ordered Results ELECTROLYTES Most recent to 1 oldest [Reference Range]: Sodium Lvl [135-145 137 mEq/L mEq/L] (03/06/16 4:05 PM) Potassium Lvl 3.6 mEq/L [3.5-5.1 mEq/L] (03/06/16 4:05 PM) Chloride Lvl [95-109 102 mEq/L mEq/L] (03/06/16 4:05 PM) CO2 [24-32 mEq/L] 24 mEq/L (03/06/16 4:05 PM) AGAP [10.0-20.0 14.6 mEq/L mEq/L] (03/06/16 4:05 PM) CHEM PANEL Most recent to 1 oldest [Reference Range]: Creatinine Lvl 0.86 mg/dL [0.50-1.40 mg/dL] (03/06/16 4:05 PM) eGFR 97 mL/min/1.73m2 1 *NA* (03/06/16 4:05 PM) BUN [7-22 mg/dL] 13 mg/dL (03/06/16 4:05 PM) B/C Ratio [6-25] 15 (03/06/16 4:05 PM) Glucose Lvl [70-99 145 mg/dL mg/dL] *HI* (03/06/16 4:05 PM) Total Protein 8.5 g/dL [6.4-8.4 g/dL] *HI* (03/06/16 4:05 PM) Albumin Lvl [3.5-5.0 4.7 g/dL g/dL] (03/06/16 4:05 PM) Globulin [2.7-4.2 3.8 g/dL g/dL] (03/06/16 4:05 PM) A/G Ratio [0.7-1.6] 1.2 (03/06/16 4:05 PM) Calcium Lvl 9.4 mg/dL [8.5-10.5 mg/dL] (03/06/16 4:05 PM) ALT [0-65 unit/L] 42 unit/L (03/06/16 4:05 PM) AST [0-37 unit/L] 35 unit/L (03/06/16 4:05 PM) Alk Phos [39-136 82 unit/L unit/L] (03/06/16 4:05 PM) Bili Total [0.2-1.3 1.4 mg/dL mg/dL] *HI* (03/06/16 4:05 PM) Lipase Lvl [73-393 406 unit/L unit/L] *HI* (03/06/16 4:05 PM) 1Result Comment: The eGFR is calculated [...] be mul tiplied by the estimated BMI. URINE AND STOOL Most recent to 1 oldest [Reference Range]: UA Turbidity [Clear] Clear (03/06/16 5:35 PM) UA Color [Yellow] Yellow *NA* (03/06/16 5:35 PM) UA pH [5.0-8.0] 6.0 (03/06/16 5:35 PM) UA Spec Grav 1.025 [<=1.030] (03/06/16 5:35 PM) UA Glucose [Negative 50 mg/dL mg/dL] *ABN* (03/06/16 5:35 PM) UA Blood [Negative] Negative (03/06/16 5:35 PM) UA Ketones [Negative 80 mg/dL mg/dL] *ABN* (03/06/16 5:35 PM) UA Protein [Negative Negative mg/dL mg/dL] (03/06/16 5:35 PM) UA Urobilinogen <=1.0 mg/dL [0.1-1.0 mg/dL] *NA* (03/06/16 5:35 PM) UA Bili [Negative] Negative *NA* (03/06/16 5:35 PM) UA Leuk Est Negative [Negative] (03/06/16 5:35 PM) UA Nitrite Negative [Negative] (03/06/16 5:35 PM) UA WBC [0-5 /HPF] 1 /HPF (03/06/16 5:35 PM) UA RBC [0-2 /HPF] 5 /HPF *HI* (03/06/16 5:35 PM) UA Sq Epi None Seen *NA* (03/06/16 5:35 PM) UA Mucus [None Seen Few /LPF /LPF] *NA* (03/06/16 5:35 PM) HEMATOLOGY Most recent to 1 oldest [Reference Range]: WBC [3.7-10.4 K/CMM] 11.0 K/CMM *HI* (03/06/16 4:05 PM) RBC [4.70-6.10 4.69 M/CMM M/CMM] *LOW* (03/06/16 4:05 PM) Hgb [14.0-18.0 g/dL] 15.2 g/dL (03/06/16 4:05 PM) Hct [42.0-54.0 %] 44.2 % (03/06/16 4:05 PM) MCV [80.0-94.0 fL] 94.2 fL *HI* (03/06/16 4:05 PM) MCH [27.0-31.0 pg] 32.4 pg *HI* (03/06/16 4:05 PM) MCHC [32.0-36.0 34.3 g/dL g/dL] (03/06/16 4:05 PM) RDW [11.5-14.5 %] 12.8 % (03/06/16 4:05 PM) Platelet [133-450 270 K/CMM K/CMM] (03/06/16 4:05 PM) MPV [7.4-10.4 fL] 7.7 fL (03/06/16 4:05 PM) Segs [45.0-75.0 %] 54.7 % (03/06/16 4:05 PM) Lymphocytes 38.2 % [20.0-40.0 %] (03/06/16 4:05 PM) Monocytes [2.0-12.0 6.3 % %] (03/06/16 4:05 PM) Eosinophils [0.0-4.0 0.4 % %] (03/06/16 4:05 PM) Basophils [0.0-1.0 0.4 % %] (03/06/16 4:05 PM) Segs-Bands # 6.0 K/CMM [1.5-8.1 K/CMM] (03/06/16 4:05 PM) Lymphocytes # 4.2 K/CMM [1.0-5.5 K/CMM] (03/06/16 4:05 PM) Monocytes # [0.0-0.8 0.7 K/CMM K/CMM] (03/06/16 4:05 PM) Immunizations No data available for this section Procedures Procedure Date Related Diagnosis Body Site Cholecystectomy Knee joint operation Social History Social History Type Response Smoking Status Never smoker; Exposure to Tobacco Smoke None; Cigarette Smoking Last 365 Days No; Reg Smoking Cessation Counseling No Assessment and Plan No data available for this section
--- OUTSIDE RECORDS SUMMARY | 2018-11-11 14:49 | XMS REPORT | CCD ---
Author Author Auto Generated Organization [facility] Address Unknown Phone Unavailable Care Team Providers Care Sales Audit Clerk Name Role Phone Won Cardenas CP Allergies, Adverse Reactions, Alerts Substance Reaction Status codeine Active penicillins Active Problem List Condition Effective Dates Status [D]Nausea and vomiting Active Acid reflux Active Diverticulitis Active Epigastric pain Active HTN - Hypertension Active Type 2 diabetes mellitus Active Medications Medication Instructions Start Date End Date Status Sodium Chloride 0.9% 1,000 mL, Rate: 1,000 ml/hr, Infuse 03/17/2012 03/17/2012 Completed (Bolus) IV 1000 mL over: 1 hr, Route: IV, kg, Total Volume: 1,000, Bolus Dose, Priority: STAT, Start date: 03/17/12 17:57:00, Duration: 1 doses or times, Stop date: 03/17/12 18:56:00 Zofran 4 mg, Route: IVP, Drug form: INJ, 03/17/2012 03/17/2012 Completed ONCE, Dosing Weight 113.636, kg, Priority: STAT, Start date: 03/17/12 17:56:00, Stop date: 03/17/12 17:56:00 Dilaudid 1 mg, Route: IV, ONCE, Dosing 03/17/2012 03/17/2012 Completed Weight 113.636, kg, Start date: 03/17/12 17:56:00, Stop date: 03/17/12 17:56:00 Zofran 4 mg oral 4 mg, 1 tab, PO, BID, 10 tab, 03/17/2012 Ordered tablet Substitution Allowed Saline Flush 0.9% 5 ml, Route: IVP, Drug Form: INJ, 03/17/2012 03/18/2012 Discontinued kg, PRN, PRN Line Flush, Start date: 03/17/12 17:24:00, Duration: 24 hr, Stop date: 03/18/12 17:23:00 Sodium Chloride 0.9% 1,000 mL, Rate: 1,000 ml/hr, Infuse 03/17/2012 03/17/2012 Completed (Bolus) IV 1,000 mL over: 1 hr, Route: IV, Dosing Weight 113 kg, Total Volume: 1,000, Bolus Dose, Priority: STAT, Start date: 03/17/12 20:35:00, Duration: 1 doses or times, Stop date: 03/17/12 21:34:00 Vital Signs Most recent to oldest [Reference Range]: 1 Height 182.88 cm (03/17/2012 16:59:00) Weight 113.636 kg (03/17/2012 16:59:00) Results BEDSIDE GLUCOSE TESTING Most recent to oldest [Reference Range]: 1 Gluc POC Lifscn [70-99 mg/dL] 197 mg/dL 1 *HI* (03/17/2012 17:25:00) Comment1 Notify RN/MD *NA* (03/17/2012 17:25:00) 1Interpretive Data: Upper Reportable Limit: 200 mg/dL. URINALYSIS Most recent to oldest [Reference Range]: 1 UA Turbidity [Clear] Clear (03/17/2012 17:24:00) UA Color [Yellow] Yellow *NA* (03/17/2012 17:24:00) UA pH [5.0-8.0] 7.0 (03/17/2012 17:24:00) UA Spec Grav [<=1.030] 1.025 (03/17/2012 17:24:00) UA Glucose [Negative mg/dL] 500 mg/dL *ABN* (03/17/2012 17:24:00) UA Blood [Negative] Negative (03/17/2012 17:24:00) UA Ketones [Negative mg/dL] 80 mg/dL *ABN* (03/17/2012 17:24:00) UA Protein [Negative mg/dL] Negative mg/dL (03/17/2012 17:24:00) UA Urobilinogen [0.1-1.0 mg/dL] <=1.0 mg/dL *NA* (03/17/2012 17:24:00) UA Bili [Negative] Negative *NA* (03/17/2012:24:00) UA Leuk Est [Negative] Negative (03/17/2012:24:00) UA Nitrite [Negative] Negative (03/17/2012:24:00) UA WBC [0-5 /HPF] <1 /HPF (03/17/2012:24:00) UA RBC [0-2 /HPF] 1 /HPF (03/17/2012:24:00) UA Sq Epi [Few /LPF] Occasional /LPF *NA* (03/17/2012:24:00) UA Mucus [None Seen /LPF] Few /LPF *NA* (03/17/2012:24:00) CHEMISTRY Most recent to oldest [Reference Range]: 1 Sodium Lvl [135-145 mEq/L] 139 mEq/L (03/17/2012:30:00) Potassium Lvl [3.5-5.1 mEq/L] 3.8 mEq/L (03/17/2012:30:00) Chloride Lvl [95-109 mEq/L] 103 mEq/L (03/17/2012:30:00) CO2 [24-32 mEq/L] 21 mEq/L *LOW* (03/17/2012:30:00) AGAP [10.0-20.0 mEq/L] 18.8 mEq/L (03/17/2012:30:00) Creatinine Lvl [0.5-1.4 mg/dL] 1.2 mg/dL (03/17/2012:30:00) BUN [7-22 mg/dL] 10 mg/dL (03/17/2012:30:00) B/C Ratio [6-25] 8 (03/17/2012:30:00) Glucose Lvl [70-99 mg/dL] 225 mg/dL 2 *HI* (03/17/2012:30:00) Total Protein [6.4-8.4 g/dL] 8.5 g/dL *HI* (03/17/2012:30:00) Albumin Lvl [3.5-5.0 g/dL] 4.4 g/dL (03/17/2012:30:00) Globulin [2.0-4.0 g/dL] 4.1 g/dL *HI* (03/17/201230:00) A/G Ratio [0.7-1.6] 1.1 (03/17/2012:30:00) Calcium Lvl [8.5-10.5 mg/dL] 10.0 mg/dL (03/17/2012:30:00) ALT [0-65 unit/L] 33 unit/L (03/17/2012:00) AST [0-37 unit/L] 24 unit/L (03/17/2012:30:00) Alk Phos [39-136 unit/L] 91 unit/L (03/17/2012:30:00) Bili Total [0.2-1.3 mg/dL] 1.5 mg/dL *HI* (03/17/201230:00) Lipase Lvl [73-393 unit/L] 260 unit/L (03/17/2012:30:00) 2Interpretive Data: Adult reference range values reflect the clinical guidelines of the [place] [employer]. HEMATOLOGY Most recent to oldest [Reference Range]: 1 WBC [3.7-10.4 K/CMM] 10.0 K/CMM (03/17/2012:30:00) RBC [4.70-6.10 M/CMM] 4.81 M/CMM (03/17/2012:30:00) Hgb [14.0-18.0 g/dL] 15.9 g/dL (03/17/2012:30:00) Hct [42.0-54.0 %] 46.4 % (03/17/2012:30:00) MCV [80.0-94.0 fL] 96.3 fL *HI* (03/17/2012:30:00) MCH [27.0-31.0 pg] 32.9 pg *HI* (03/17/201230:00) MCHC [32.0-36.0 g/dL] 34.2 g/dL (03/17/2012:30:00) RDW [11.5-14.5 %] 12.9 % (03/17/2012 17:30:00) Platelet [133-450 K/CMM] 227 K/CMM (03/17/2012 17:30:00) MPV [7.4-10.4 fL] 7.9 fL (03/17/2012 17:30:00) Segs [45.0-75.0 %] 87.7 % *HI* (03/17/2012 17:30:00) Lymphocytes [20.0-40.0 %] 9.8 % *LOW* (03/17/2012 17:30:00) Monocytes [2.0-12.0 %] 2.3 % (03/17/2012 17:30:00) Eosinophils [0.0-4.0 %] 0.0 % (03/17/2012 17:30:00) Basophils [0.0-1.0 %] 0.2 % (03/17/2012 17:30:00) Segs-Bands # [1.5-8.1 K/CMM] 8.8 K/CMM *HI* (03/17/2012 17:30:00) Lymphocytes # [1.0-5.5 K/CMM] 1.0 K/CMM (03/17/2012 17:30:00) Monocytes # [0.0-0.8 K/CMM] 0.2 K/CMM (03/17/2012 17:30:00) Eosinophils # [0.0-0.5 K/CMM] 0.0 K/CMM (03/17/2012 17:30:00) Basophils # [0.0-0.2 K/CMM] 0.0 K/CMM (03/17/2012 17:30:00) RBC Morph Normal (03/17/2012 17:30:00) Plt Morph Normal (03/17/2012 17:30:00)
--- OUTSIDE RECORDS SUMMARY | 2018-11-11 14:49 | XMS REPORT | Summary of Care ---
Author Author [facility] Organization [facility] Address Unknown Phone Unavailable Encounter CARMELA Rushing(CHRIS) [id number] Date(s): 10/09/16 - 10/10/16 [facility] [address] [place] [address]- [phone] Discharge Diagnosis: Abdominal pain, epigastric Discharge Disposition: Home or Self Care Attending Physician: Jennifer Newell MD Vital Signs 1 2 3 Most recent to oldest [Reference Range]: 182.88 cm (10/09/16 5:38 PM) Height 98 DegF (10/09/16 11:52 PM) 98 DegF (10/09/16 11:05 PM) 98.1 DegF (10/09/16 7:04 PM) Temperature Oral [96.4-99.1 DegF] 107/60 mmHg (10/09/16 11:52 PM) 147/72 mmHg *HI* (10/09/16 11:05 PM) 153/76 mmHg *HI* (10/09/16 10:05 PM) Blood Pressure [90-140/60-90 mmHg] 17 BRMIN (10/09/16 11:52 PM) 16 BRMIN (10/09/16 11:05 PM) 17 BRMIN (10/09/16 10:05 PM) Respiratory Rate [14-20 BRMIN] 68 bpm (10/09/16 7:04 PM) 79 bpm (10/09/16 6:54 PM) 75 bpm (10/09/16 5:38 PM) Peripheral Pulse Rate [60-100 bpm] 118.182 kg (10/09/16 5:38 PM) Weight 35.34 m2 (10/09/16 5:38 PM) Body Mass Index Problem List Condition [...] Originally documented as PENICILLIN. hives, rash,nausea Medications GI cocktail 30 mL, Route: PO, Dosing Weight 118.182, kg, ONCE, STAT, Start date: 10/09/16 22 :01:00 VP PACKAGING, Stop date: 10/09/16 22:01:00 VP PACKAGING Start Date: 10/09/16 Stop Date: 10/09/16 Status: Completed morphine Sulfate 4 mg, Route: IVP, ONCE, Dosing Weight 118.182, kg, Priority: STAT, Start date: 0 10/09/16 18:54:00 VP PACKAGING, Stop date: 10/09/16 18:54:00 VP PACKAGING Start Date: 10/09/16 Stop Date: 10/09/16 Status: Completed ondansetron 4 mg, Route: IVP, ONCE, Dosing Weight 118.182, kg, Priority: STAT, Start date: 0 10/09/16 17:42:00 VP PACKAGING, Stop date: 10/09/16 17:42:00 VP PACKAGING Start Date: 10/09/16 Stop Date: 10/09/16 Status: Completed Saline Flush 0.9% 10 mL, Route: IVP, Drug Form: INJ, Dosing Weight 118.182, kg, PRN, PRN Line Flus h, Start date: 10/09/16 17:42:00 VP PACKAGING, Duration: 30 day, Stop date: 11/08/16 18:4 1:00 CDT Notes: (Same as: BD Posiflush) Start Date: 10/09/16 Stop Date: 10/10/16 Status: Discontinued Sodium Chloride 0.9% (Bolus) IV 1,000 mL, 2,000 ml/hr, Infuse Over: 30 minutes, Route: IV, 1,000, Drug form: INJ , ONCE, Priority: STAT, Dosing Weight 118.182 kg, Start date: 10/09/16 17:42:00 VP PACKAGING, Duration: 1 doses or times, Stop date: 10/09/16 17:42:00 VP PACKAGING Start Date: 10/09/16 Stop Date: 10/09/16 Status: Completed tramadol 50 mg oral tablet 50 mg=1 tab, PO, Q8H, PRN Pain, X 20 day, # 60 tab, 0 Refill(s) Start Date: 10/09/16 Stop Date: 10/29/16 Status: Ordered Zantac 300 oral tablet 300 mg=1 tab, PO, Daily, # 30 tab, 0 Refill(s) Start Date: 10/09/16 Status: Ordered Zofran ODT 4 mg oral tablet, disintegrating 4 mg=1 tab, PO, TID, Dissolve tab under tongue, X 1 day, # 3 tab, 0 Refill(s) Start Date: 10/09/16 Stop Date: 10/10/16 Status: Completed Results ELECTROLYTES Most recent to 1 oldest [Reference Range]: Sodium Lvl [135-145 135 mEq/L mEq/L] (10/09/16 5:49 PM) Potassium Lvl 3.8 mEq/L [3.5-5.1 mEq/L] (10/09/16 5:49 PM) Chloride Lvl [95-109 98 mEq/L mEq/L] (10/09/16 5:49 PM) CO2 [24-32 mEq/L] 25 mEq/L (10/09/16 5:49 PM) AGAP [10.0-20.0 15.8 mEq/L mEq/L] (10/09/16 5:49 PM) CHEM PANEL Most recent to 1 oldest [Reference Range]: Creatinine Lvl 0.96 mg/dL [0.50-1.40 mg/dL] (10/09/16 5:49 PM) eGFR 88 mL/min/1.73m2 1 *NA* (10/09/16 5:49 PM) BUN [7-22 mg/dL] 21 mg/dL (10/09/16 5:49 PM) B/C Ratio [6-25] 22 (10/09/16 5:49 PM) Glucose Lvl [70-99 121 mg/dL mg/dL] *HI* (10/09/16 5:49 PM) Total Protein 8.4 g/dL [6.4-8.4 g/dL] (10/09/16 5:49 PM) Albumin Lvl [3.5-5.0 4.3 g/dL g/dL] (10/09/16 5:49 PM) Globulin [2.7-4.2 4.1 g/dL g/dL] (10/09/16 5:49 PM) A/G Ratio [0.7-1.6] 1.0 (10/09/16 5:49 PM) Calcium Lvl 9.4 mg/dL [8.5-10.5 mg/dL] (10/09/16 5:49 PM) ALT [0-65 unit/L] 30 unit/L (10/09/16 5:49 PM) AST [0-37 unit/L] 34 unit/L (10/09/16 5:49 PM) Alk Phos [39-136 99 unit/L unit/L] (10/09/16 5:49 PM) Bili Total [0.2-1.3 1.5 mg/dL mg/dL] *HI* (10/09/16 5:49 PM) Lipase Lvl [73-393 331 unit/L unit/L] (10/09/16 5:49 PM) 1Result Comment: The eGFR is calculated [...] Most recent to 1 oldest [Reference Range]: Total CK [12-191 248 unit/L unit/L] *HI* (10/09/16 5:49 PM) CK MB [0.5-3.6 2.5 ng/mL ng/mL] (10/09/16 5:49 PM) CK MB Index 1.0 [0.0-2.5] (10/09/16 5:49 PM) Troponin-I <0.02 ng/mL [0.00-0.40 ng/mL] (10/09/16 5:49 PM) URINE AND STOOL Most recent to 1 oldest [Reference Range]: UA Turbidity [Clear] Slight *ABN* (10/09/16 7:42 PM) UA Color [Yellow] Yellow *NA* (10/09/16 7:42 PM) UA pH [5.0-8.0] 5.0 (10/09/16 7:42 PM) UA Spec Grav 1.027 [<=1.030] (10/09/16 7:42 PM) UA Glucose [Negative 50 mg/dL mg/dL] *ABN* (10/09/16 7:42 PM) UA Blood [Negative] Negative (10/09/16 7:42 PM) UA Ketones [Negative 80 mg/dL mg/dL] *ABN* (10/09/16 7:42 PM) UA Protein [Negative Negative mg/dL mg/dL] (10/09/16 7:42 PM) UA Urobilinogen <=1.0 mg/dL [0.1-1.0 mg/dL] *NA* (10/09/16 7:42 PM) UA Bili [Negative] Negative *NA* (10/09/16 7:42 PM) UA Leuk Est Negative [Negative] (10/09/16 7:42 PM) UA Nitrite Negative [Negative] (10/09/16 7:42 PM) UA WBC [0-5 /HPF] 1 /HPF (10/09/16 7:42 PM) UA RBC [0-2 /HPF] 3 /HPF *HI* (10/09/16 7:42 PM) UA Bacteria [None Occasional /HPF Seen /HPF] *NA* (10/09/16 7:42 PM) UA Sq Epi [Few /LPF] Occasional /LPF *NA* (10/09/16 7:42 PM) UA Mucus [None Seen Many /LPF /LPF] *ABN* (10/09/16 7:42 PM) HEMATOLOGY Most recent to 1 oldest [Reference Range]: WBC [3.7-10.4 K/CMM] 8.5 K/CMM (10/09/16 5:49 PM) RBC [4.70-6.10 4.67 M/CMM M/CMM] *LOW* (10/09/16 5:49 PM) Hgb [14.0-18.0 g/dL] 15.3 g/dL (10/09/16 5:49 PM) Hct [42.0-54.0 %] 44.0 % (10/09/16 5:49 PM) MCV [80.0-94.0 fL] 94.2 fL *HI* (10/09/16 5:49 PM) MCH [27.0-31.0 pg] 32.7 pg *HI* (10/09/16 5:49 PM) MCHC [32.0-36.0 34.7 g/dL g/dL] (10/09/16 5:49 PM) RDW [11.5-14.5 %] 12.9 % (10/09/16 5:49 PM) Platelet [133-450 321 K/CMM K/CMM] (10/09/16 5:49 PM) MPV [7.4-10.4 fL] 7.3 fL *LOW* (10/09/16 5:49 PM) Segs [45.0-75.0 %] 57.5 % (10/09/16 5:49 PM) Lymphocytes 34.8 % [20.0-40.0 %] (10/09/16 5:49 PM) Monocytes [2.0-12.0 6.7 % %] (10/09/16 5:49 PM) Eosinophils [0.0-4.0 0.7 % %] (10/09/16 5:49 PM) Basophils [0.0-1.0 0.3 % %] (10/09/16 5:49 PM) Segs-Bands # 4.9 K/CMM [1.5-8.1 K/CMM] (10/09/16 5:49 PM) Lymphocytes # 3.0 K/CMM [1.0-5.5 K/CMM] (10/09/16 5:49 PM) Monocytes # [0.0-0.8 0.6 K/CMM K/CMM] (10/09/16 5:49 PM) Eosinophils # 0.1 K/CMM [0.0-0.5 K/CMM] (10/09/16 5:49 PM) Immunizations No data available for this [...]
--- OUTSIDE RECORDS SUMMARY | 2018-11-11 14:49 | XMS REPORT | Summary of Care ---
Author Author [facility] Organization [facility] Address Unknown Phone Unavailable Encounter CARMELA Rushing(CHRIS) [id number] Date(s): 03/08/16 - 03/08/16 [facility] [address] [place] [address]- Discharge Diagnosis: Diverticulitis Discharge Disposition: Home or Self Care Attending Physician: Zena Conde MD Vital Signs 1 2 3 Most recent to oldest [Reference Range]: 182.88 cm (03/08/16 11:36 AM) Height 97.9 DegF (03/08/16 4:21 PM) 98.1 DegF (03/08/16 2:07 PM) 98.1 DegF (03/08/16 11:36 AM) Temperature Oral [96.4-99.1 DegF] 112/72 mmHg (03/08/16 4:21 PM) 111/68 mmHg (03/08/16 2:07 PM) 138/71 mmHg (03/08/16 12:20 PM) Blood Pressure [90-140/60-90 mmHg] 18 BRMIN (03/08/16 4:21 PM) 17 BRMIN (03/08/16 2:07 PM) 17 BRMIN (03/08/16 12:20 PM) Respiratory Rate [14-20 BRMIN] 71 bpm (03/08/16 4:21 PM) 63 bpm (03/08/16 2:07 PM) 67 bpm (03/08/16 12:20 PM) Peripheral Pulse Rate [60-100 bpm] 118.182 kg (03/08/16 11:36 AM) Weight 35.34 m2 (03/08/16 11:36 AM) Body Mass Index Problem List Condition Effective Dates Status Health Status Informant [D]Nausea and Active vomiting(Confirmed) Abdominal Resolved hernia(Confirmed) Acid Active reflux(Confirmed) Biliary dyskinesia1, 5/2/12 Active 2 Diabetes(Confirmed) Resolved Diverticulitis(Confi Resolved rmed) [...] Originally documented as PENICILLIN. hives, rash,nausea Medications hydromorphone 0.5 mg, Route: IVP, ONCE, Dosing Weight 118.182, kg, Priority: STAT, Start date: 03/08/16 12:15:00 CDT, Stop date: 03/08/16 12:15:00 CDT Start Date: 03/08/16 Stop Date: 03/08/16 Status: Completed metoclopramide 10 mg, Route: IVP, Drug form: INJ, ONCE, Dosing Weight 118.182, kg, Priority: ST AT, Start date: 03/08/16 12:15:00 CDT, Stop date: 03/08/16 12:15:00 CDT Start Date: 03/08/16 Stop Date: 03/08/16 Status: Completed morphine Sulfate 4 mg, Route: IVP, ONCE, Dosing Weight 118.182, kg, Priority: STAT, Start date: 0 03/08/16 11:59:00 CDT, Stop date: 03/08/16 11:59:00 CDT Start Date: 03/08/16 Stop Date: 03/08/16 Status: Completed ondansetron 4 mg, Route: IVP, Drug form: INJ, ONCE, Dosing Weight 118.182, kg, Priority: STA T, Start date: 03/08/16 11:59:00 CDT, Stop date: 03/08/16 11:59:00 CDT Start Date: 03/08/16 Stop Date: 03/08/16 Status: Completed Sodium Chloride 0.9% (Bolus) IV 1,000 mL, 2,000 ml/hr, Infuse Over: 30 minutes, Route: IV, ONCE, Priority: STAT, Dosing Weight 118.182 kg, Start date: 03/08/16 11:59:00 CDT, Duration: 1 doses or times, Stop date: 03/08/16 11:59:00 CDT Start Date: 03/08/16 Stop Date: 03/08/16 Status: Completed Zofran 4 mg/5 mL oral solution 4 mg=5 mL, PO, TID, PRN Nausea, X 3 day, # 45 mL, 0 Refill(s) Start Date: 03/08/16 Stop Date: 03/11/16 Status: Ordered Results ELECTROLYTES Most recent to 1 oldest [Reference Range]: Sodium Lvl [135-145 136 mEq/L mEq/L] (03/08/16 12:00 PM) Potassium Lvl 3.8 mEq/L [3.5-5.1 mEq/L] (03/08/16 12:00 PM) Chloride Lvl [95-109 104 mEq/L mEq/L] (03/08/16 12:00 PM) CO2 [24-32 mEq/L] 20 mEq/L *LOW* (03/08/16 12:00 PM) AGAP [10.0-20.0 15.8 mEq/L mEq/L] (03/08/16 12:00 PM) CHEM PANEL Most recent to 1 oldest [Reference Range]: Creatinine Lvl 0.93 mg/dL [0.50-1.40 mg/dL] (03/08/16 12:00 PM) eGFR 93 mL/min/1.73m2 1 *NA* (03/08/16 12:00 PM) BUN [7-22 mg/dL] 10 mg/dL (03/08/16 12:00 PM) B/C Ratio [6-25] 11 (03/08/16 12:00 PM) Glucose Lvl [70-99 182 mg/dL mg/dL] *HI* (03/08/16 12:00 PM) Total Protein 8.2 g/dL [6.4-8.4 g/dL] (03/08/16 12:00 PM) Albumin Lvl [3.5-5.0 4.0 g/dL g/dL] (03/08/16 12:00 PM) Globulin [2.7-4.2 4.2 g/dL g/dL] (03/08/16 12:00 PM) A/G Ratio [0.7-1.6] 1.0 (03/08/16 12:00 PM) Calcium Lvl 9.3 mg/dL [8.5-10.5 mg/dL] (03/08/16 12:00 PM) ALT [0-65 unit/L] 37 unit/L (03/08/16:00 PM) AST [0-37 unit/L] 32 unit/L (03/08/16 12:00 PM) Alk Phos [39-136 74 unit/L unit/L] (03/08/16 12:00 PM) Bili Total [0.2-1.3 1.0 mg/dL mg/dL] (03/08/16 12:00 PM) Amylase Lvl [25-115 77 unit/L unit/L] (03/08/16 12:00 PM) Lipase Lvl [73-393 414 unit/L unit/L] *HI* (03/08/16 12:00 PM) 1Result Comment: The eGFR is calculated [...] oldest [Reference Range]: UA Turbidity [Clear] Clear (03/08/16 2:02 PM) UA Color Ltyellow *NA* (03/08/16 2:02 PM) UA pH [5.0-8.0] 7.0 (03/08/16 2:02 PM) UA Spec Grav 1.014 [<=1.030] (03/08/16 2:02 PM) UA Glucose [Negative 500 mg/dL mg/dL] *ABN* (03/08/16 2:02 PM) UA Blood [Negative] Negative (03/08/16 2:02 PM) UA Ketones [Negative 20 mg/dL mg/dL] *ABN* (03/08/16 2:02 PM) UA Protein [Negative Negative mg/dL mg/dL] (03/08/16 2:02 PM) UA Urobilinogen <=1.0 mg/dL [0.1-1.0 mg/dL] *NA* (03/08/16 2:02 PM) UA Bili [Negative] Negative *NA* (03/08/16 2:02 PM) UA Leuk Est Negative [Negative] (03/08/16 2:02 PM) UA Nitrite Negative [Negative] (03/08/16 2:02 PM) UA WBC [0-5 /HPF] <1 /HPF (03/08/16 2:02 PM) UA Sq Epi [Few /LPF] Occasional /LPF *NA* (03/08/16 2:02 PM) UA Mucus [None Seen Few /LPF /LPF] *NA* (03/08/16 2:02 PM) HEMATOLOGY Most recent to 1 oldest [Reference Range]: WBC [3.7-10.4 K/CMM] 10.6 K/CMM *HI* (03/08/16 12:00 PM) RBC [4.70-6.10 4.69 M/CMM M/CMM] *LOW* (03/08/16 12:00 PM) Hgb [14.0-18.0 g/dL] 15.3 g/dL (03/08/16 12:00 PM) Hct [42.0-54.0 %] 44.5 % (03/08/16 12:00 PM) MCV [80.0-94.0 fL] 94.9 fL *HI* (03/08/16 12:00 PM) MCH [27.0-31.0 pg] 32.6 pg *HI* (03/08/16 12:00 PM) MCHC [32.0-36.0 34.4 g/dL g/dL] (03/08/16 12:00 PM) RDW [11.5-14.5 %] 13.1 % (03/08/16 12:00 PM) Platelet [133-450 279 K/CMM K/CMM] (03/08/16 12:00 PM) MPV [7.4-10.4 fL] 7.7 fL (03/08/16 12:00 PM) Segs [45.0-75.0 %] 64.4 % (03/08/16 12:00 PM) Lymphocytes 30.5 % [20.0-40.0 %] (03/08/16 12:00 PM) Monocytes [2.0-12.0 4.6 % %] (03/08/16 12:00 PM) Eosinophils [0.0-4.0 0.1 % %] (03/08/16 12:00 PM) Basophils [0.0-1.0 0.4 % %] (03/08/16 12:00 PM) Segs-Bands # 6.8 K/CMM [1.5-8.1 K/CMM] (03/08/16 12:00 PM) Lymphocytes # 3.2 K/CMM [1.0-5.5 K/CMM] (03/08/16 12:00 PM) Monocytes # [0.0-0.8 0.5 K/CMM K/CMM] (03/08/16 12:00 PM) Immunizations No data available for this section Procedures Procedure Date Related Diagnosis Body Site Cholecystectomy Knee joint operation Social History Social History Type Response Smoking Status Never smoker; Exposure to Tobacco Smoke None; Cigarette Smoking Last 365 Days No; Reg Smoking Cessation Counseling No Assessment and Plan No data available for this section
--- OUTSIDE RECORDS SUMMARY | 2018-11-11 14:49 | XMS REPORT | CCD ---
Author Author Auto Generated Organization [facility] Address Unknown Phone Unavailable Care Team Providers Care Head Counselor Name Role Phone You Fuller CP Allergies, Adverse Reactions, Alerts Substance Reaction Status codeine Active penicillins Active Problem List Condition Effective Dates Status [D]Nausea and vomiting Active Acid reflux Active Diverticulitis Active Epigastric pain Active HTN - Hypertension Active Type 2 diabetes mellitus Active Medications Medication Instructions Start Date End Date Status ondansetron 4 mg, Route: IVP, Drug form: INJ, 12/25/2011 12/25/2011 Completed ONCE, Priority: STAT, Start date: 12/25/11 16:12:00, Stop date: 12/25/11 16:12:00 morphine Sulfate 4 mg, Route: IVP, ONCE, Priority: 12/25/2011 12/25/2011 Completed STAT, Start date: 12/25/11 16:11:00, Stop date: 12/25/11 16:11:00 Protonix 40 mg oral 40 mg, 1 tab, PO, BID, 60 tab, 12/26/2011 Ordered enteric coated Substitution Allowed, ECTAB tablet Protonix 40 mg, 1 tab, Route: PO, Drug form: 12/26/2011 12/26/2011 Discontinued ECTAB, BID-Before Meals, Start date: 12/26/11 16:30:00, Duration: 30 day, Stop date: 01/25/12 7:30:00 Protonix 40 mg oral 40 mg, 1 tab, PO, BID, 60 tab, 12/26/2011 Ordered enteric coated Substitution Allowed tablet Ativan 1 mg, 0.5 mL, Route: IVP, Drug 12/25/2011 12/25/2011 Completed form: INJ, ONCE, PRN See Nurse's Notes, Start date: 12/25/11 18:13:00, Prior to the MRI Dilaudid 1 mg, 1 mL, Route: IV, Drug form: 12/25/2011 12/25/2011 Completed SOLN, ONCE, PRN See Nurse's Notes, Start date: 12/25/11 18:13:00, Stop date: 01/24/12 18:12:00, Prior to MRI Benadryl 50 mg, 1 mL, Route: IVP, Drug form: 12/25/2011 12/25/2011 Completed INJ, ONCE, PRN See Nurse's Notes, Start date: 12/25/11 18:12:00, prior to MRI Saline Flush 0.9% 5 ml, Route: IVP, Drug Form: INJ, 12/25/2011 12/26/2011 Discontinued PRN, PRN Line Flush, Start date: 12/25/11 18:57:00, Duration: 30 day, Stop date: 01/24/12 18:56:00 Dextrose 5% with 1,000 mL, Rate: 125 ml/hr, Infuse 12/25/2011 12/26/2011 Discontinued 0.45% NaCl IV 1,000 over: 8 hr, Route: IV, Dosing mL Weight 118.182 kg, Total Volume: 1,000, Start date: 12/25/11 18:57:00, Duration: 30 day, Stop date: 01/24/12 18:56:00 ondansetron 4 mg, 2 mL, Route: IVP, Drug form: 12/25/2011 12/26/2011 Discontinued INJ, Q6H, PRN Nausea & Vomiting, Start date: 12/25/11 18:57:00, Duration: 30 day, Stop date: 01/24/12 18:56:00 morphine Sulfate 4 mg, 2 mL, Route: IVP, Drug form: 12/25/2011 12/26/2011 Discontinued INJ, Q4H, PRN Pain Score 7-10, Start date: 12/25/11 18:57:00, Duration: 30 day, Stop date: 01/24/12 18:56:00 GI cocktail 30 ml, Route: PO, Drug Form: SUSP, 12/25/2011 12/25/2011 Completed ONCE, Formulation #1: (Maalox 30ml - Viscous Lidocaine 10ml - Elixir 10ml), STAT, Start date: 12/25/11 14:13:00, Stop date: 12/25/11 14:13:00 Saline Flush 0.9% 5 ml, Route: IVP, Drug Form: INJ, 12/25/2011 12/25/2011 Discontinued PRN, PRN Line Flush, Start date: 12/25/11 14:13:00, Duration: 24 hr, Stop date: 12/26/11 14:12:00 acetaminophen-hydroc 1 tab, PO, Q4H, PRN, as needed for 12/25/2011 Ordered odone 325 mg-5 mg pain, Substitution Allowed, oral tablet Maintenance Prilosec OTC 20 mg 20 mg, 1 tab, PO, Daily, 12/25/2011 12/26/2011 Discontinued oral enteric coated Substitution Allowed tablet Vital Signs Most recent to oldest [Reference Range]: 1 2 3 Height 182.88 cm (12/25/2011 18:42:00) 182.88 cm (12/25/2011 12:59:00) Temperature Oral [96.4-99.1 DegF] 98.9 DegF (12/26/2011 12:00:00) 98.4 DegF (12/26/2011 08:00:00) 98.1 DegF (12/26/2011 04:00:00) Systolic Blood Pressure [90-140 mmHg] 106 mmHg (12/26/2011 12:00:00) 112 mmHg (12/26/2011 08:00:00) 102 mmHg (12/26/2011 04:00:00) Diastolic Blood Pressure [60-90 mmHg] 69 mmHg (12/26/2011 12:00:00) 73 mmHg (12/26/2011 08:00:00) 56 mmHg *LOW* (12/26/2011 04:00:00) Respiratory Rate [14-20 BRMIN] 18 BRMIN (12/26/2011 12:00:00) 18 BRMIN (12/26/2011 08:00:00) 20 BRMIN (12/26/2011 04:00:00) Peripheral Pulse Rate [60-100 bpm] 66 bpm (12/26/2011 12:00:00) 65 bpm (12/26/2011 08:00:00) 56 bpm *LOW* (12/26/2011 04:00:00) Weight 118.182 kg (12/25/2011 18:42:00) 118.182 kg (12/25/2011 12:59:00) Results URINALYSIS Most recent to oldest [Reference Range]: 1 UA Turbidity [Clear] Slight *ABN* (12/25/2011 14:35:00) UA Color Ltyellow *NA* (12/25/2011 14:35:00) UA pH [5.0-8.0] 7.0 (12/25/2011 14:35:00) UA Spec Grav [<=1.030] 1.017 (12/25/2011 14:35:00) UA Glucose [Negative mg/dL] 500 mg/dL *ABN* (12/25/2011 14:35:00) UA Blood [Negative] Negative (12/25/2011 14:35:00) UA Ketones [Negative mg/dL] 20 mg/dL *ABN* (12/25/2011 14:35:00) UA Protein [Negative mg/dL] Negative mg/dL (12/25/2011 14:35:00) UA Urobilinogen [0.1-1.0 mg/dL] 2.0 mg/dL *HI* (12/25/2011 14:35:00) UA Bili [Negative] Negative *NA* (12/25/2011 14:35:00) UA Leuk Est [Negative] Negative (12/25/2011 14:35:00) UA Nitrite [Negative] Negative (12/25/2011 14:35:00) UA WBC [0-5 /HPF] <1 /HPF (12/25/2011 14:35:00) UA RBC [0-2 /HPF] 1 /HPF (12/25/2011 14:35:00) UA Sq Epi None Seen *NA* (12/25/2011 14:35:00) UA Mucus [None Seen /LPF] Few /LPF *NA* (12/25/2011 14:35:00) CHEMISTRY Most recent to oldest [Reference Range]: 1 Sodium Lvl [135-145 mEq/L] 139 mEq/L (12/25/2011 13:40:00) Potassium Lvl [3.5-5.1 mEq/L] 3.5 mEq/L (12/25/2011 13:40:00) Chloride Lvl [95-109 mEq/L] 103 mEq/L (12/25/2011 13:40:00) CO2 [24-32 mEq/L] 20 mEq/L *LOW* (12/25/2011 13:40:00) AGAP [10.0-20.0 mEq/L] 19.5 mEq/L (12/25/2011 13:40:00) Creatinine Lvl [0.5-1.4 mg/dL] 0.9 mg/dL (12/25/2011 13:40:00) BUN [7-22 mg/dL] 12 mg/dL (12/25/2011 13:40:00) B/C Ratio [6-25] 13 (12/25/2011 13:40:00) Glucose Lvl [70-99 mg/dL] 194 mg/dL 1 *HI* (12/25/2011 13:40:00) Total Protein [6.4-8.4 g/dL] 8.5 g/dL *HI* (12/25/2011 13:40:00) Albumin Lvl [3.5-5.0 g/dL] 4.4 g/dL (12/25/2011 13:40:00) Globulin [2.0-4.0 g/dL] 4.1 g/dL *HI* (12/25/2011 13:40:00) A/G Ratio [0.7-1.6] 1.1 (12/25/2011 13:40:00) Calcium Lvl [8.5-10.5 mg/dL] 9.6 mg/dL (12/25/2011 13:40:00) ALT [0-65 U/L] 32 U/L (12/25/2011 13:40:00) AST [0-37 U/L] 21 U/L (12/25/2011 13:40:00) Alk Phos [39-136 U/L] 78 U/L (12/25/2011 13:40:00) Bili Total [0.2-1.3 mg/dL] 1.6 mg/dL *HI* (12/25/2011 13:40:00) Lipase Lvl [73-393 U/L] 318 U/L (12/25/2011 13:40:00) 1Interpretive Data: Adult reference range values reflect the clinical guidelinesof the [employer]. HEMATOLOGY Most recent to oldest [Reference Range]: 1 WBC [3.7-10.4 K/CMM] 9.1 K/CMM (12/25/2011 13:40:00) RBC [4.70-6.10 M/CMM] 4.79 M/CMM (12/25/2011 13:40:00) Hgb [14.0-18.0 g/dL] 16.2 g/dL (12/25/2011 13:40:00) Hct [42.0-54.0 %] 45.9 % (12/25/2011 13:40:00) MCV [80.0-94.0 fL] 95.8 fL *HI* (12/25/2011:40:00) MCH [27.0-31.0 pg] 33.7 pg *HI* (12/25/2011:40:00) MCHC [32.0-36.0 g/dL] 35.2 g/dL (12/25/2011 13:40:00) RDW [11.5-14.5 %] 13.0 % (12/25/2011 13:40:00) Platelet [133-450 K/CMM] 249 K/CMM (12/25/2011 13:40:00) MPV [7.4-10.4 fL] 7.9 fL (12/25/2011 13:40:00) Segs [45.0-75.0 %] 71.7 % (12/25/2011 13:40:00) Lymphocytes [20.0-40.0 %] 23.2 % (12/25/2011 13:40:00) Monocytes [2.0-12.0 %] 4.7 % (12/25/2011 13:40:00) Eosinophils [0.0-4.0 %] 0.1 % (12/25/2011 13:40:00) Basophils [0.0-1.0 %] 0.3 % (12/25/2011 13:40:00) Segs-Bands # [1.5-8.1 K/CMM] 6.5 K/CMM (12/25/2011 13:40:00) Lymphocytes # [1.0-5.5 K/CMM] 2.1 K/CMM (12/25/2011 13:40:00) Monocytes # [0.0-0.8 K/CMM] 0.4 K/CMM (12/25/2011 13:40:00) Eosinophils # [0.0-0.5 K/CMM] 0.0 K/CMM (12/25/2011 13:40:00) Basophils # [0.0-0.2 K/CMM] 0.0 K/CMM (12/25/2011 13:40:00)
[2018-11-11 15:27] LABS: BASOPHILS % 0.4 % (0.0-1.0); EOSINOPHILS # (AUTO) 0.2 (0.0-0.4); EOSINOPHILS % 2.9 % (0.0-6.0); HEMATOCRIT 42.5 % (38.2-49.6); HEMOGLOBIN 15.2 g/dL (14.0-18.0); LYMPHOCYTES # (AUTO) 2.8 (1.0-3.2); LYMPHOCYTES % 33.3 % (18.0-39.1); MEAN CORPUSCULAR HEMOGLOBIN 32.8 pg (28-32); MEAN CORPUSCULAR HGB CONC 35.8 g/dL (31-35); MEAN CORPUSCULAR VOLUME 91.6 fL (81-99); MONOCYTES # (AUTO) 0.7 (0.2-0.8); MONOCYTES % 7.9 % (4.4-11.3); NEUTROPHILS # (AUTO) 4.7 (2.1-6.9); NEUTROPHILS % 55.3 % (38.7-80.0); PLATELET COUNT 244 x10e3/uL (140-360); RED BLOOD COUNT 4.64 x10e6/uL (4.3-5.7); RED CELL DISTRIBUTION WIDTH 12.5 % (11.7-14.4)
[2018-11-11] MEDS ORDERED: ACETAMINOPHEN325 M1 PEG (15:30)
[2018-11-11] MEDS ORDERED: OMEPRAZOLE40 MG PO (15:30)
[2018-11-11 15:32] LABS: INR 0.99; PROTHROMBIN TIME 13.6 seconds (11.9-14.5)
[2018-11-11 15:33] LABS: PARTIAL THROMBOPLASTIN TIME 27.8 seconds (23.8-35.5)
[2018-11-11 15:40] LABS: ALANINE AMINOTRANSFERASE 31 IU/L (0-55); ALKALINE PHOSPHATASE 111 IU/L (40-150); ANION GAP 11.7 mmol/L (8-16); BLOOD UREA NITROGEN 12 mg/dL (7-26); BUN/CREATININE RATIO 15 (6-25); CALCIUM 9.6 mg/dL (8.4-10.2); CARBON DIOXIDE 27 mmol/L (22-29); CHLORIDE 102 mmol/L (98-107); CREATINE KINASE 241 IU/L (30-200); CREATININE, SERUM 0.81 mg/dL (0.72-1.25); EST GLOMERULAR FILTRATION RATE > 60 ML/MIN (60-); GLUCOSE 137 mg/dL (74-118); POTASSIUM 3.7 mmol/L (3.5-5.1); SODIUM 137 mmol/L (136-145)
[2018-11-11] MEDS ORDERED: IBUPROFEN 400 MG TAB PO ONE (15:45)
--- NOTE | 2018-11-11 16:07 | Diagnostic Imaging Report ---
Examination: CT BRAIN WITHOUT CONTRAST History:Dizziness. Lethargy. Comparison studies:None Technique: Axial images were obtained from the skull base to the vertex. Coronal and sagittal images reconstructed from the axial data. Dose modulation, iterative reconstruction, and/or weight based adjustment of the mA/kV was utilized to reduce the radiation dose to as low as reasonably achievable. Intravenous contrast: None Findings: Scalp: No abnormalities. Bones: No fractures, blastic or lytic lesions. Brain sulci: Appropriate for age. Ventricles: Normal in size and configuration. No hydrocephalus. Extra-axial space: No abnormalities. Parenchyma: No abnormal densities. No masses, hemorrhage, or acute or chronic cortical based vascular insults.. Sellar/suprasellar region: No abnormalities. Craniocervical junction: Patent foramen magnum. No Chiari one malformation. Incidental findings: None. Impression: No intracranial abnormalities. Signed by: Dr. Debbie Calero M.D. on 11/11/2018 4:04 PM
--- NOTE | 2018-11-11 16:16 | Diagnostic Imaging Report ---
EXAMINATION: CHEST SINGLE (PORTABLE) INDICATION: Dizziness, headache, blurry vision. COMPARISON: None FINDINGS: Exam is somewhat limited by soft tissue attenuation. TUBES and LINES: None. LUNGS: Lungs are well inflated. There is no evidence of pneumonia or pulmonary edema. PLEURA: No pleural effusion or pneumothorax. HEART AND MEDIASTINUM: The cardiomediastinal silhouette is unremarkable. BONES AND SOFT TISSUES: No acute osseous abnormality. UPPER ABDOMEN: No free air under the diaphragm. IMPRESSION: No acute radiographic abnormality. Signed by: Dr. Jong Alas MD on 11/11/2018 4:13 PM
[2018-11-11 16:22] LABS: CLARITY,URINE SL CLOUDY (CLEAR); COLOR,URINE YELLOW (YELLOW); LEUKOCYTE ESTERASE ,URINE NEGATIVE (NEGATIVE); NITRITE,URINE NEGATIVE (NEGATIVE); PROTEIN,URINE DIPSTICK NEGATIVE (NEGATIVE)
[2018-11-11 16:23] LABS: BILIRUBIN,URINE NEGATIVE (NEGATIVE); KETONES,URINE NEGATIVE (NEGATIVE); URINE UROBILINOGEN 0.2 mg/dL (0.2 - 1)
[2018-11-11 16:43] LABS: BACTERIA,URINE RARE /HPF; EPITHELIAL CELLS,URINE FEW /LPF; MUCUS,URINE MANY (RARE)
== END 2018-11-11 17:15 | disposition home or self-care (01) ==
LOC: ER 14:44
DX: H57.13 Ocular pain, bilateral (principal); G44.019 Episodic cluster headache, not intractable; H61.22 Impacted cerumen, left ear
CPT/HCPCS: 36415; 70450; 71045; 80053; 81001; 82550; 82553; 84484; 85025; 85610; 85730; 93005; 99284

== ENCOUNTER 2020-11-22 21:56 | Emergency (ER) | payer BC ==
[~2020-11-22] VITALS: Ht 182.9 cm; Wt 113.4 kg
[~2020-11-22 21:56] MED LIST changes: +ACETAMINOPHEN325 M1 PO; +OMEPRAZOLE40 MG PO
[2020-11-22 22:13] LABS: BASOPHILS % 0.3 % (0.0-1.0); EOSINOPHILS # (AUTO) 0.1 (0.0-0.4); EOSINOPHILS % 0.9 % (0.0-6.0); HEMATOCRIT 40.2 % (38.2-49.6); HEMOGLOBIN 14.6 g/dL (14.0-18.0); LYMPHOCYTES # (AUTO) 2.2 (1.0-3.2); LYMPHOCYTES % 36.9 % (18.0-39.1); MEAN CORPUSCULAR HEMOGLOBIN 32.7 pg (28-32); MEAN CORPUSCULAR HGB CONC 36.3 g/dL (31-35); MEAN CORPUSCULAR VOLUME 89.9 fL (81-99); MONOCYTES # (AUTO) 0.4 (0.2-0.8); NEUTROPHILS # (AUTO) 3.2 (2.1-6.9); NEUTROPHILS % 54.6 % (38.7-80.0); PLATELET COUNT 224 x10e3/uL (140-360); RED BLOOD COUNT 4.47 x10e6/uL (4.3-5.7)
[2020-11-22] MEDS ORDERED: DIAZEPAM INJ 5 MG/ML 2 ML IV ONE (22:15)
[2020-11-22 22:30] LABS: ANION GAP 14.5 mmol/L (8-16); BLOOD UREA NITROGEN 11 mg/dL (7-26); BUN/CREATININE RATIO 15 (6-25); CALCIUM 8.5 mg/dL (8.4-10.2); CARBON DIOXIDE 19 mmol/L (22-29); CHLORIDE 107 mmol/L (98-107); CREATININE, SERUM 0.75 mg/dL (0.72-1.25); EST GLOMERULAR FILTRATION RATE > 60 ML/MIN (60-); GLUCOSE 162 mg/dL (74-118); POTASSIUM 3.5 mmol/L (3.5-5.1); SODIUM 137 mmol/L (136-145)
[2020-11-23] MEDS ORDERED: ONDANSETRON HCL 4 MG ORAL DISINTEGRATING TAB PO ONE (00:30)
[2020-11-23] MEDS ORDERED: HYDROCODONE/APAP 10MG-325MG TAB PO ONE (00:30)
[2020-11-23] MEDS ORDERED: ONDANSETRON ODT4 MG PO (00:31)
[2020-11-23] MEDS ORDERED: HYDROCODON-ACE1 EA11 PO (00:31)
[2020-11-23] MEDS ORDERED: HYDROCODONE/APAP 10MG-325MG TAB ONE (00:34)
[2020-11-23] MEDS ORDERED: KETOROLAC TROMETHAMINE 60 MG/2 ML VIAL IM ONE (01:15)
[2020-11-23] MEDS ORDERED: KETOROLAC TROMETHAMINE 60 MG/2 ML VIAL ONE (01:19)
[2020-11-23] MEDS ORDERED: MORPHINE SULFATE INJ 4 MG/ML INJ 1ML IV STA (01:55)
[2020-11-23] MEDS ORDERED: ONDANSETRON HCL INJ 2MG/ML 2ML 2 MG/ML VIAL IV STA (02:13)
[2020-11-23] MEDS ORDERED: ONDANSETRON HCL INJ 2MG/ML 2ML 2 MG/ML VIAL ONE (02:24)
[2020-11-23] MEDS ORDERED: IOPAMIDOL 370 MG/ML 200 ML INFUS..BTL INJ ONE (03:22)
[2020-11-23] MEDS ORDERED: SODIUM CHLORIDE 0.9% 50ML 50 ML ONE (03:22)
[2020-12-10] MEDS ORDERED: VOLTAREN-XR100 MG PO (14:26)
[2020-12-12] MEDS ORDERED: HYDROCODON-ACE1 EA12 PO (09:26)
== END 2020-11-23 05:10 | disposition home or self-care (01) ==
LOC: ER 22:01
DX: M54.42 Lumbago with sciatica, left side (principal)
CPT/HCPCS: 36415; 72131; 74174; 80048; 85025; 99284; J1885; J2270; J2405; J3360; Q0162; Q9967

== ENCOUNTER → 2020-12-12 | Day surgery (SDC) | payer BC ==
[2020-12-10 16:06] LABS: BASOPHILS % 0.4 % (0.0-1.0); EOSINOPHILS # (AUTO) 0.1 (0.0-0.4); EOSINOPHILS % 1.4 % (0.0-6.0); HEMATOCRIT 40.7 % (38.2-49.6); HEMOGLOBIN 14.5 g/dL (14.0-18.0); LYMPHOCYTES # (AUTO) 2.6 (1.0-3.2); LYMPHOCYTES % 33.9 % (18.0-39.1); MEAN CORPUSCULAR HGB CONC 35.6 g/dL (31-35); MEAN CORPUSCULAR VOLUME 92.5 fL (81-99); MONOCYTES # (AUTO) 0.5 (0.2-0.8); MONOCYTES % 6.6 % (4.4-11.3); NEUTROPHILS # (AUTO) 4.4 (2.1-6.9); NEUTROPHILS % 57.4 % (38.7-80.0); PLATELET COUNT 267 x10e3/uL (140-360); RED CELL DISTRIBUTION WIDTH 12.4 % (11.7-14.4)
[2020-12-10 16:21] LABS: BLOOD UREA NITROGEN 14 mg/dL (7-26); BUN/CREATININE RATIO 16 (6-25); CALCIUM 9.4 mg/dL (8.4-10.2); CARBON DIOXIDE 25 mmol/L (22-29); CHLORIDE 104 mmol/L (98-107); CREATININE, SERUM 0.87 mg/dL (0.72-1.25); EST GLOMERULAR FILTRATION RATE > 60 ML/MIN (60-); GLUCOSE 213 mg/dL (74-118); SODIUM 141 mmol/L (136-145)
[2020-12-10 16:23] LABS: INR 0.99; PROTHROMBIN TIME 13.7 seconds (11.9-14.5)
[2020-12-10 16:24] LABS: PARTIAL THROMBOPLASTIN TIME 30.9 seconds (23.8-35.5)
[~2020-12-12] MED LIST changes: +ACETAMINOPHEN 325 MG TAB PO PRN; +ATROPINE SULFATE 1 MG/ML VIAL ONE; +BUPIVACAINE 0.5%/EPI 30 ML SDV INJ ONE; +CARISOPRODOL 350 MG TAB ONE; +CARISOPRODOL 350 MG TAB PO PRN; +DEXAMETHASONE SOD PHOS INJ 4 MG/ML VIAL ONE; +DICLOFENAC SOD 50 MG TAB PO SCH; +FENTANYL CITRATE/PF 100MCG/2 ML INJ ONE; +HYDROCODON-ACE1 EA11 PO; +HYDROCODON-ACE1 EA12 PO; +HYDROMORPHONE 2MG/ML 2 MG/ML ML IV PRN; +KETOROLAC TROMETHAMINE 30 MG/ML VIAL ONE; +LACTATED RINGER'S 1,000 ML IV SCH; +LIDOCAINE HCL 2% LOCAL INJ 5 ML SDV VIAL INJ ONE; +MAGNESIUM/ALUMINUM/SIMETHICONE 30 ML UDC PO PRN; +MIDAZOLAM HCL 2 MG/2 ML VIAL ONE; +MORPHINE SULFATE 5 MG/ML VIAL IM PRN; +NEOSTIGMINE 1 MG/ML 10ML VIAL ONE; +ONDANSETRON HCL INJ 2MG/ML 2ML 2 MG/ML VIAL IV PRN; +ONDANSETRON HCL INJ 2MG/ML 2ML 2 MG/ML VIAL ONE; +ONDANSETRON ODT4 MG PO; +OXYCODONE/ACETAMINOPHEN 5-325 1 EACH TABLET ONE; +OXYCODONE/ACETAMINOPHEN 5-325 1 EACH TABLET PO PRN; +PANTOPRAZOLE SOD 40 MG TABEC PO SCH; +POVIDONE IODINE 0.05% 0.05 % ML PO ONE; +PROMETHAZINE HCL (IM) 25 MG/ML VIAL IM PRN; +PROPOFOL IV EMULSION 10 MG/ML 20 ML VIAL ONE; +ROCURONIUM BROMIDE 10 MG/ML 5ML VIAL IV ONE; +SEVOFLURANE INHAL SOLN 250 ML PEN BTL ONE; +THROMBIN FOR SOLN 5,000 UNIT VIAL ONE; +VANCOMYCIN 1GM/NS 250 ML 250 ML ONE; +VANCOMYCIN HCL 1 GM VIAL ONE; +VOLTAREN-XR100 MG PO; +ZOLPIDEM TARTRATE 5 MG TAB PO PRN
[2020-12-12 12:10] VITALS: BP 122/71
== END | disposition home or self-care (01) ==
LOC: OR 06:58
PROVIDERS: ATTEND Neurological Surgery
DX: M51.16 Intervertebral disc disorders with radiculopathy, lumbar region (principal); K21.9 Gastro-esophageal reflux disease without esophagitis; F17.210 Nicotine dependence, cigarettes, uncomplicated; Z88.6 Allergy status to analgesic agent; Z88.0 Allergy status to penicillin; Z01.810 Encounter for preprocedural cardiovascular examination; Z01.812 Encounter for preprocedural laboratory examination; Z01.818 Encounter for other preprocedural examination; Z68.34 Body mass index [BMI] 34.0-34.9, adult
CPT/HCPCS: 36415; 63047; 71046; 72020; 80048; 85025; 85610; 85730; 86850; 86900; 88304; 88311; 93005; J0461; J1100; J1885; J2001; J2250; J2405; J2704; J2710; J3010; J3370 ×2

== ENCOUNTER 2025-03-12 19:31 | Emergency (ER) | payer BC ==
[~2025-03-12] VITALS: Ht 182.9 cm; Wt 117.9 kg
[~2025-03-12 19:31] MED LIST changes: -ACETAMINOPHEN 325 MG TAB PO PRN; -ATROPINE SULFATE 1 MG/ML VIAL ONE; -BUPIVACAINE 0.5%/EPI 30 ML SDV INJ ONE; -CARISOPRODOL 350 MG TAB ONE; -CARISOPRODOL 350 MG TAB PO PRN; -DEXAMETHASONE SOD PHOS INJ 4 MG/ML VIAL ONE; -DICLOFENAC SOD 50 MG TAB PO SCH; -FENTANYL CITRATE/PF 100MCG/2 ML INJ ONE; -HYDROMORPHONE 2MG/ML 2 MG/ML ML IV PRN; -KETOROLAC TROMETHAMINE 30 MG/ML VIAL ONE; -LACTATED RINGER'S 1,000 ML IV SCH; -LIDOCAINE HCL 2% LOCAL INJ 5 ML SDV VIAL INJ ONE; -MAGNESIUM/ALUMINUM/SIMETHICONE 30 ML UDC PO PRN; -MIDAZOLAM HCL 2 MG/2 ML VIAL ONE; -MORPHINE SULFATE 5 MG/ML VIAL IM PRN; -NEOSTIGMINE 1 MG/ML 10ML VIAL ONE; -ONDANSETRON HCL INJ 2MG/ML 2ML 2 MG/ML VIAL IV PRN; -ONDANSETRON HCL INJ 2MG/ML 2ML 2 MG/ML VIAL ONE; -OXYCODONE/ACETAMINOPHEN 5-325 1 EACH TABLET ONE; -OXYCODONE/ACETAMINOPHEN 5-325 1 EACH TABLET PO PRN; -PANTOPRAZOLE SOD 40 MG TABEC PO SCH; -POVIDONE IODINE 0.05% 0.05 % ML PO ONE; -PROMETHAZINE HCL (IM) 25 MG/ML VIAL IM PRN; -PROPOFOL IV EMULSION 10 MG/ML 20 ML VIAL ONE; -ROCURONIUM BROMIDE 10 MG/ML 5ML VIAL IV ONE; -SEVOFLURANE INHAL SOLN 250 ML PEN BTL ONE; -THROMBIN FOR SOLN 5,000 UNIT VIAL ONE; -VANCOMYCIN 1GM/NS 250 ML 250 ML ONE; -VANCOMYCIN HCL 1 GM VIAL ONE; -ZOLPIDEM TARTRATE 5 MG TAB PO PRN
[2025-03-12 20:20] VITALS: TEMP 98.4
[2025-03-12] MEDS: KETOROLAC TROMETHAMINE 30 MG/ML VIAL IV STA (21:01)
[2025-03-12 21:02] LABS: BASOPHILS % 0.3 % (0.0-1.0); EOSINOPHILS % 0.8 % (0.0-6.0); LYMPHOCYTES % 19.9 % (18.0-39.1); MONOCYTES % 8.3 % (4.4-11.3); NEUTROPHILS % 70.5 % (38.7-80.0); RED CELL DISTRIBUTION WIDTH 13.2 % (11.7-14.4)
[2025-03-12 21:22] LABS: EST GLOMERULAR FILTRATION RATE 96.0 ML/MIN (>=60)
[2025-03-12] MEDS ORDERED: Morphine 4mg INJECTION 4 MG/ML INJ IV ONE (22:15)
[2025-03-12] MEDS: ONDANSETRON HCL INJ 2MG/ML 2ML 2 MG/ML VIAL IV STA (22:43)
[2025-03-12] MEDS: HYDROMORPHONE 1MG/1ML INJ IV STA (22:44)
[2025-03-12 23:00] VITALS: PULSE 61; RESP 17; O2SAT 98
[2025-03-12] MEDS ORDERED: IOPAMIDOL 370 MG/ML 100 ML INFUS..BTL INJ ONE (23:21)
== END 2025-03-12 23:20 | disposition other institution (70) ==
LOC: ER 19:46
DX: S06.0X0A Concussion without loss of consciousness, initial encounter (principal); S32.010A Wedge compression fracture of first lumbar vertebra, initial encounter for closed fracture; R10.9 Unspecified abdominal pain; W22.8XXA Striking against or struck by other objects, initial encounter; Y93.19 Activity, other involving water and watercraft; Y92.838 Other recreation area as the place of occurrence of the external cause
CPT/HCPCS: 36415; 70450; 71260; 72131; 74177; 80053; 80320; 82550; 84484; 85025; 93005; 99284; J1171; J1885; J2405; Q9967